=== PATIENT | female | born 1955 | race African-American/Black ===

== ENCOUNTER → 2016-10-17 | Outpatient (CLI) | payer MEDICAID ==
--- NOTE | 2016-10-17 10:49 | WOMENS IMAGING REPORT ---
EXAM DESCRIPTION: BILAT SCREENING MAMMO W/CAD COMPLETED DATE/TIME: 10/17/2016 9:45 am REASON FOR STUDY: Z12.31, ROUTINE SCREENING MAMMO Z12.31 ENCNTR SCREEN MAMMOGRAM FOR MALIGNANT NEOP LASM OF OJ COMPARISON: No previous, over 20 years ago TECHNIQUE: Standard craniocaudal and mediolateral oblique views of each breast recorded using digita l acquisition. LIMITATIONS: None. FINDINGS: No masses, calcifications or architectural distortion. No areas of suspicion. Read with the assistance of CAD. .[facility] - R2 Cenova Version 1.3 .[facility] - R2 Cenova Version 1.3 .[facility] - R2 Cenova Version 2.4 [place] [place]2 Cenova Version 2.4 .[facility] - R2 Rn Integrity Version 9.2 IMPRESSION: NORMAL MAMMOGRAM. BIRADS 1. BREAST DENSITY: a. The breasts are almost entirely fatty. BIRAD: 1 NEGATIVE RECOMMENDATION: ROUTINE SCREENING COMMENT: The patient has been notified of the results by letter per MQSA requirements. Additional no tification policies are in place for contacting patient with suspicious or incomplete findings. Quality ID #[id number]: The [employer] recommends an annual screening mammogram for women aged 40 years or over. This facility utilizes a reminder system to ensure that all patients receive reminder letters, and/or direct phone calls for appointments. This includes reminders for routine scr eening mammograms, diagnostic mammograms, or other Breast Imaging Interventions when appropriate. Th is patient will be placed in the appropriate reminder system. The [employer] (ACR) has developed recommendations for screening MRI of the breast s in certain patient populations, to be used in conjunction with mammography. Breast MRI surveillanc e may be appropriate for women with more than 20% lifetime risk of developing breast cancer as deter mined by genetic testing, significant family history of the disease, or history of mantle radiation f or Hodgkins Disease. ACR Practice Guidelines 2008. TECHNICAL DOCUMENTATION: FINDING NUMBER: (1) ASSESSMENT: (1) JOB ID: [id number] [employer]- All Rights Reserved
== END ==
LOC: WI 09:21
PROVIDERS: ATTEND Family Medicine
DX: Z12.31 Encounter for screening mammogram for malignant neoplasm of breast (principal)
CPT/HCPCS: 77067; G0202

== ENCOUNTER 2016-10-25 22:43 | Observation (INO) | payer MEDICAID ==
[2016-10-25] MEDS ORDERED: MORPHINE SULFATE IR 15 MG TABLET PO ONE (22:50)
[2016-10-25] MEDS ORDERED: ACETAMINOPHEN 325 MG TABLET PO ONE (22:50)
--- NOTE | 2016-10-25 23:28 | RADIOLOGY REPORT (SQ) ---
EXAM DESCRIPTION: SHOULDER RIGHT 2 OR MORE VIEWS COMPLETED DATE/TIME: 10/25/2016 11:14 pm REASON FOR STUDY: fall, pain COMPARISON: None. NUMBER OF VIEWS: Three views. TECHNIQUE: Internal rotation, external rotation, and Y view images acquired of the right shoulder. LIMITATIONS: Limited positioning. FINDINGS: MINERALIZATION: Normal. BONES: Impacted fracture of the humeral neck. JOINTS: No dislocation. VISUALIZED LUNGS AND RIBS: No pneumothorax. No rib fracture. SOFT TISSUES: No radiopaque foreign body. OTHER: No other significant finding. IMPRESSION: LIMITED POSITIONING. IMPACTED FRACTURE OF THE HUMERAL NECK. TECHNICAL DOCUMENTATION: JOB ID: [id number] [employer]- All Rights Reserved
[2016-10-25] MEDS ORDERED: HYDROCODONE/ACETAMINOPHEN 5-325 MG 6 TAB/DSPK PO PRN (23:33)
--- NOTE | 2016-10-25 23:34 | ER Document Report ---
ED General - General Chief Complaint: Shoulder Injury Stated Complaint: SHOULDER PAIN Time Seen by Provider: 10/25/16 22:47 Notes: Patient is a 60-year-old female with past medical history of a prior TIA, hypertension, who presents after having a mechanical fall onto her right shoulder just prior to arrival. Patient states she was standing on a couch trying to hang curtains when she lost her balance falling directly onto her right shoulder. She denies injuring any other portion of her body. Does describe a severe, constant, throbbing pain to the shoulder. Any attempt at movement worsens the pain. Nothing improves the pain. No history of similar injury in the past. She is right-hand dominant. She has not seen her primary care doctor regarding today's concerns. She does arrive by EMS. TRAVEL OUTSIDE OF THE [place] IN LAST 30 DAYS: No - Related Data Allergies/Adverse Reactions: No Known Allergies Allergy (Unverified 09/19/13 21:11) Past Medical History - General Information source: Patient - Social History Smoking Status: Never Smoker Chew tobacco use (# tins/day): No Frequency of alcohol use: None Drug Abuse: None Lives with: Family Family History: CAD - Uncle, grandfather with CAD by age 50. Mother of an NE at age 59., Hypertension - Past Medical History Cardiac Medical History: Reports: Hx Hypertension Neurological Medical History: Reports: Hx Cerebrovascular Accident Malignancy Medical History: Reports: Hx Ovarian Cancer Psychiatric Medical History: Reports: Hx Bipolar Disorder, Hx Depression Past Surgical History: Reports: Hx Cholecystectomy, Hx Hysterectomy, Hx Neurologic Surgery, Hx Tonsillectomy, Hx Tubal Ligation - Immunizations Hx Diphtheria, Pertussis, Tetanus Vaccination: Yes Review of Systems - Review of Systems Notes: Constitutional: Negative for fever. HENT: Negative for sore throat. Eyes: Negative for visual changes. Cardiovascular: Negative for chest pain. Respiratory: Negative for shortness of breath. Gastrointestinal: Negative for abdominal pain, vomiting or diarrhea. Genitourinary: Negative for dysuria. Musculoskeletal: Positive for left shoulder pain Skin: Negative for rash. Neurological: Negative for headaches, weakness or numbness. 10 point ROS negative except as marked above and in HPI. Physical Exam - Vital signs Vitals: Temp Pulse Resp BP Pulse Ox 98.3 F 77 17 174/91 H 98 10/25/16 22:50 10/25/16 22:50 10/25/16 22:50 10/25/16 22:50 10/25/16 22:50 Interpretation: Hypertensive Notes: PHYSICAL EXAMINATION: GENERAL: Appears mildly uncomfortable but no acute distress HEAD: Atraumatic, normocephalic. EYES: Pupils equal round and reactive to light, extraocular movements intact, sclera anicteric, conjunctiva are normal. ENT: nares patent, oropharynx clear without exudates. Moist mucous membranes. NECK: Normal range of motion, supple without lymphadenopathy LUNGS: Breath sounds clear to auscultation bilaterally and equal. No wheezes rales or rhonchi. HEART: Regular rate and rhythm, 3/6 systolic ejection murmur ABDOMEN: Soft, nontender, normoactive bowel sounds. No guarding, no rebound. No masses appreciated. EXTREMITIES: Refuses to perform range of motion with the right shoulder. No obvious deformity. Mild swelling to the anterior aspect of the soft tissue overlying humeral head. Exam otherwise unremarkable NEUROLOGICAL: No focal neurological deficits. Moves all extremities spontaneously and on command. PSYCH: Normal mood, normal affect. SKIN: Warm, Dry, normal turgor, no rashes or lesions noted. Course - Re-evaluation Re-evalutation: 10/25/16 23:33 Patient presents after mechanical fall directly onto her right shoulder just prior to arrival after standing on a couch and losing her balance. The only area of injury was her right shoulder. She denies any head or neck trauma. No focal neurologic deficits. Neurovascular intact. X-ray does demonstrate an impacted humeral neck fracture but is otherwise unremarkable without evidence of dislocation. Patient has been placed in a sling and will be asked to follow- up with orthopedic surgery. At this time will discharge with return precautions and follow-up recommendations. Verbal discharge instructions given a the bedside and opportunity for questions given. Medication warnings reviewed. Patient is in agreement with this plan and has verbalized understanding of return precautions and the need for primary care follow-up in the next 24-72 hours. 10/26/16 00:21 Shortly after I updated the pain of care with the patient she developed retrosternal chest pain without radiation with associated diaphoresis. No history of similar symptoms in the past. A stat EKG was obtained which did not show any ST elevations or depressions, unchanged from prior. She will be placed on a cardiac surgeon, aspirin will be administered. Will obtain a stat portable chest x-ray, and proceed with troponin testing. 10/26/16 01:45 Patient has remained chest pain-free now for over 1 hour. Troponin negative. Will obtain a second troponin 3 hours from initial. Chest x-ray is clear. 10/26/16 03:49 Patient did have a mild recurrence of her pain that has again resolved spontaneously without intervention. Repeat troponin is pending. If this is negative will plan for discharge home. - Vital Signs Vital signs: Temp Pulse Resp BP Pulse Ox 98.3 F 77 18 129/69 H 95 10/25/16 22:50 10/26/16 00:06 10/26/16 02:11 10/26/16 02:11 10/26/16 02:11 - Laboratory Result Diagrams: 10/26/16 00:35 Laboratory results interpreted by me: 10/26/16 00:35 Potassium 3.4 L Est GFR (Non-Af Amer) 56 L Glucose 123 H - Diagnostic Test Radiology reviewed: Image reviewed, Reports reviewed Radiology results interpreted by me: 10/26/16 01:45 Right shoulder film: Impacted femoral neck fracture Chest x-ray: No widened mediastinum or pneumothorax - EKG Interpretation by Me Additional EKG results interpreted by me: 10/26/16 01:46 Sinus rhythm. Rate 78. No ST elevations or depressions. Prolonged QTC at 511. Unchanged from prior EKG. Discharge - Discharge Clinical Impression: Fracture of neck of left humerus Qualifiers: Encounter type: initial encounter Fracture type: closed Qualified Code(s): S42.212A - Unspecified displaced fracture of surgical neck of left humerus, initial encounter for closed fracture Chest pain Qualifiers: Chest pain type: unspecified Qualified Code(s): R07.9 - Chest pain, unspecified Condition: Good Disposition: HOME, SELF-CARE Instructions: Sling as Treatment ([facility]) Additional Instructions: You have an impacted fracture of your left humeral neck. This is the bone of your upper extremity. This should heal well over the next several weeks without surgical intervention. Stay in the sling except when you are showering or sleeping. Please follow-up with orthopedic surgery in the next 1-2 weeks for routine follow-up. Return if you have worsening pain, weakness, numbness, or any other symptoms that are worrisome to you. For your pain: Take ibuprofen 600 mg and acetaminophen 1000 mg every 6 hours together as needed for pain. If this does not control your pain you may take 15 mg of oral morphine every 4 hours as needed. Please be very careful about using the oral morphine and only use this for severe pain. Prescriptions: Morphine Sulfate [Morphine Ir 15 mg Tablet] 15 mg PO Q4HP PRN #12 tablet PRN Reason:
[2016-10-26] MEDS ORDERED: ASPIRIN 81 MG TABLET, CHEWABLE PO ONE (00:19)
[2016-10-26] MEDS ORDERED: MAG HYDROX/AL HYDROX/SIMETH SUSP 30 ML UDCUP PO ONE (00:22)
[2016-10-26] MEDS ORDERED: METOCLOPRAMIDE HCL ORAL SOLN 10 MG/10 ML UDCUP PO ONE (00:22)
[2016-10-26] MEDS ORDERED: LIDOCAINE 2% VISCOUS SOLN 20 ML UDCUP PO ONE (00:22)
[2016-10-26] MEDS: NITROGLYCERIN 0.4 MG/TAB 25 TAB/BOTTLE SL PRN ×2 (00:44→00:51)
[2016-10-26 01:14] LABS: ANION GAP 14 (5-19); BLOOD UREA NITROGEN 15 mg/dL (7-20); CALCIUM 9.6 mg/dL (8.4-10.2); CARBON DIOXIDE 27 mmol/L (22-30); CHLORIDE 103 mmol/L (98-107); CREATININE RESULT 1.02 mg/dL (0.52-1.25); GLUCOSE 123 mg/dL (75-110); POTASSIUM 3.4 mmol/L (3.6-5.0); SODIUM 143.8 mmol/L (137-145)
--- NOTE | 2016-10-26 02:13 | RADIOLOGY REPORT (SQ) ---
EXAM DESCRIPTION: CHEST SINGLE VIEW COMPLETED DATE/TIME: 10/26/2016 1:16 am REASON FOR STUDY: chest pain COMPARISON: Chest x-ray 12/06/2015. EXAM PARAMETERS: NUMBER OF VIEWS: One view. TECHNIQUE: Single frontal radiographic view of the chest acquired. RADIATION DOSE: NA LIMITATIONS: Patient positioning FINDINGS: LUNGS AND PLEURA: The patient's chin is partially obscuring the lung apices. The patient is in a kyphotic position. There is no consolidation, sizable pleural effusion or obvious pneumothor ax. MEDIASTINUM AND HILAR STRUCTURES: No masses. Contour normal. HEART AND VASCULAR STRUCTURES: Heart normal in size. No overt vascular congestion. HARDWARE: None in the chest. IMPRESSION: No acute radiographic finding in the chest. TECHNICAL DOCUMENTATION: JOB ID: [id number]
[2016-10-26] MEDS ORDERED: METOPROLOL SUCCINATE 50 MG TAB.SR.24H PO ONE ×2 (06:34→15:00)
[2016-10-26] MEDS ORDERED: VERAPAMIL HCL 180 MG TABLET.SA PO ONE ×3 (06:36→15:00)
[2016-10-26] MEDS ORDERED: HYDROCHLOROTHIAZIDE 12.5 MG CAPSULE PO ONE (07:21)
[2016-10-26] MEDS ORDERED: LISINOPRIL 10 MG TABLET PO ONE ×2 (07:21→15:00)
[2016-10-26] MEDS ORDERED: ONDANSETRON 4 MG TAB.RAPDIS PO PRN (07:37)
[2016-10-26] MEDS ORDERED: MAGNESIUM HYDROXIDE SUSP 30 ML UDCUP PO PRN (07:37)
[2016-10-26] MEDS ORDERED: ACETAMINOPHEN 325 MG TABLET PO PRN (07:37)
[2016-10-26] MEDS ORDERED: POTASSIUM CHLORIDE 10 MEQ TABLET.SA PO ONE (08:35)
[2016-10-26] MEDS ORDERED: HYDRALAZINE HCL INJ/PF 20 MG/1 ML SDV IV ONE (08:49)
[2016-10-26] MEDS ORDERED: HYDRALAZINE HCL INJ/PF 20 MG/1 ML SDV IV PRN (08:49)
[2016-10-26] MEDS ORDERED: LEVETIRACETAM 500 MG TABLET PO SCH (10:00)
[2016-10-26] MEDS ORDERED: VERAPAMIL HCL 240 MG TABLET.SA PO SCH (10:00)
[2016-10-26] MEDS ORDERED: LISINOPRIL 10 MG TABLET PO SCH (10:00)
--- NOTE | 2016-10-26 10:03 | EKG REPORT ---
SEVERITY:- ABNORMAL ECG - SINUS RHYTHM LEFT ATRIAL ABNORMALITY LEFT VENTRICULAR HYPERTROPHY ABNORMAL T, CONSIDER ISCHEMIA, LATERAL LEADS PROLONGED QT INTERVAL : Confirmed by: Cesar Urrutia MD 26-Oct-2016 10:02:33
--- NOTE | 2016-10-26 10:29 | HISTORY AND PHYSICAL E ---
History and Physical NAME: SALVADOR CAMACHO : 1955 AGE: 60Y ADMITTED: 10/26/2016 ROOM: 406 CODE STATUS: DO NOT RESUSCITATE/DO NOT INTUBATE. PRIMARY CARE PROVIDER: Dr. Lancaster. CHIEF COMPLAINT: Fall and chest pain. HISTORY OF PRESENT ILLNESS: The patient is a 60-year-old female with a past medical history of IHSS and previous hemorrhagic stroke. The patient presented to the emergency department via EMS after sustaining a fall. The patient sustained a mechanical fall to the right shoulder just prior to arrival. The patient stated she was standing on her couch trying to hang curtains when she lost her balance and fell directly onto her right shoulder. She denied any injury of any other portion of her body and does describe a severe constant throbbing pain of the shoulder. The patient stated any attempt to move the shoulder made the pain much worse. Nothing improved the pain. The patient had not had any similar injuries in the past. She is right-hand dominant. The patient is known to the hospitalist service due to severe hypertension which is quite difficult to control. The patient was found to have hypertrophic obstructive cardiomyopathy during previous admission and nitrate agents, of course, have been avoided for this. The patient's blood pressure, according to the patient, has been relatively well controlled by her primary care provider with Toprol XL, verapamil and lisinopril. The patient has denied any other symptoms of nausea, vomiting, diarrhea, shortness of breath or dizziness. The patient had an abrupt onset of chest pain and diaphoresis which was witnessed in the emergency department. The patient denied any radiation but stated it was a grabbing type pain. The patient's troponin was 0.030 and the patient's EKG that was done did not show any change in comparison to previous EKGs. The patient has been afebrile. The patient's blood pressure has been significantly elevated. She has been referred to the hospitalist for observation and management. PAST MEDICAL HISTORY: 1. Hypertrophic obstructive cardiomyopathy. 2. Malignant hypertension which has resulted in a hemorrhagic event in the past. 3. Depression. 4. Seizure disorder. HOME MEDICATIONS: 1. Verapamil ER 240 mg p.o. daily. 2. Toprol XL 100 mg p.o. q.12 h. 3. Lisinopril 20 mg p.o. b.i.d. 4. Keppra 500 mg p.o. b.i.d. ALLERGIES: NITRATES BUT NO KNOWN TRUE DRUG ALLERGIES. PAST SURGICAL HISTORY: 1. Cholecystectomy. 2. Hysterectomy. 3. Tonsillectomy. 4. Tubal ligation. 5. Cerebral aneurysmal repair. SOCIAL HISTORY: The patient currently resides at home alone. She denies any tobacco use. No alcohol or illicit drug use. The patient's surrogate decision maker is her [id number], Yasmeen, who may be reached at [phone]. FAMILY MEDICAL HISTORY: Positive for coronary artery disease in her uncle and grandfather. The patient's mother of an CO at age 59. Also strong family history of hypertension. The patient has children who are healthy. REVIEW OF SYSTEMS: CONSTITUTIONAL: The patient denies any fevers, chills, dizziness, weakness, loss of appetite. INTEGUMENTARY: Denies any rashes, bruising or itching. The patient does admit to an episode of diaphoresis. HEENT: Denies any vision loss or hearing loss, no nasal drainage, sore throat, no headaches. CARDIOVASCULAR: Denies any edema or heart palpitations. Positive for chest pain. RESPIRATORY: Denies any cough, sputum production or hemoptysis. GASTROINTESTINAL: Denies any nausea, vomiting, abdominal pain, diarrhea, bloating, hematemesis, constipation, melena, hematochezia. GENITOURINARY: Denies any hematuria, pyuria or dysuria. MUSCULOSKELETAL: Denies any chronic joint pains but admits to acute right shoulder pain. NEUROLOGIC: No seizures, tremors or loss of consciousness. HEMATOLOGICAL: Denies any mag bleeding or easy bruising. ENDOCRINE: Denies any recent weight changes. PSYCHIATRIC: Denies suicidal or homicidal ideation. The rest of the review of the other organ systems is negative. PHYSICAL EXAMINATION: GENERAL: On examination, the patient is a well-developed, well-nourished 60-year-old female who is awake, alert and oriented to person, place, time and situation. She is verbal, conversational and ambulatory and does not appear to be in any acute distress. VITAL SIGNS: Temperature 98.3, pulse 78, respirations 17, blood pressure 193/99, oxygen saturation is 95% on room air. SKIN: Warm and dry. No rash, not diaphoretic. HEENT: Pupils are equal, round, and reactive to light and accommodation. Conjunctivae is pink. Sclerae are not icteric. There are no mouth lesions. Tongue is midline. NECK: Supple. No JVD. No palpable lymphadenopathy or thyromegaly. CARDIOVASCULAR: Heart is regular. There is no murmur or rub. CHEST: Clear, symmetrical and unlabored. ABDOMEN: Soft, nontender, nondistended. Bowel sounds are present. No palpable organomegaly. BACK: No CVA tenderness or sacral edema. EXTREMITIES: No clubbing, cyanosis, edema or peripheral signs of embolization. +2 pedal pulses noted bilaterally. PSYCHIATRIC: Appropriate affect. Pleasant mood. NEUROLOGIC: Cranial nerves II-XII are grossly intact. DIAGNOSTICS: Labs are as follows: Chemistry obtained on 10/26/2016: Sodium 143, potassium 3.4, chloride 103, carbon dioxide 27, BUN 15, creatinine 1.02, glucose 123, calcium 9.6, troponin is 0.043. Chest x-ray obtained on 10/26/2016 reveals no acute radiographic finding of the chest. Shoulder x-ray obtained on 10/25/2016 reveals impacted fracture of the femoral neck. EKG obtained on 10/26/2016 reveals sinus rhythm with left atrial abnormality, left ventricular hypertrophy. IMPRESSION AND PLAN: 1. Chest pain. Will admit the patient to continuous telemetry unit, obtain serial cardiac enzymes. Most likely this is due to hypertension, however, will follow. 2. Hypertensive emergency. Will avoid nitrates given the patient's HOCM, however, will resume home medications as soon as possible and follow this closely. 3. Hypokalemia. Will supplement potassium and follow. 4. Seizure disorder. Will resume home Keppra. 5. Humeral fracture. Will consult orthopedics and add pain medications. CODE STATUS: The patient is and has been for quite some time a DO NOT RESUSCITATE. DISPOSITION: The patient is a DNR/DNI. Pending patient's symptomatology and diagnostic findings, will evaluate in the a.m. Will observe the patient in the continuous telemetry, as the patient's expected length of stay should not surpass 2 midnights. Time spent on this admission including assessment, plan, physical examination, patient education, and extensive review of previous records is 40 minutes. DICTATING PHYSICIAN: MADELYN GAMBNIO NP [id number] PHY#: [id number] ID: [id number] JOB#: [id number] ACCT: [id number] cc:MADELYN GAMBINO FURRIER APPRENTICE >
[2016-10-26] MEDS: DOCUSATE SODIUM 100 MG CAPSULE PO SCH ×2 (10:34→17:51)
--- NOTE | 2016-10-26 13:00 | PDOC CONSULTATION ---
Consultation Consult Date: 10/26/16 Consult reason:: Right proximal humerus fracture History of Present Illness Admission Date/PCP: 10/26/16 07:37 JEMMA HAYWOOD History of Present Illness: SLAVADOR CAMACHO is a 60 year old female sitting on a couch when the soft cushions led to her slip and fall. She landed onto her right shoulder and had immediate onset right shoulder pain. X-rays in the emergency room demonstrated a right proximal humerus fracture. Orthopedics was consulted for fracture management. Past Medical History Cardiac Medical History: Reports: Hypertension Malignancy Medical History: Reports: Ovarian Cancer Psychiatric Medical History: Reports: Bipolar Disorder Denies: Depression Past Surgical History Past Surgical History: Reports: Cholecystectomy, Hysterectomy, Tonsillectomy, Tubal Ligation Social History Information Source: Patient, [facility] Records Lives with: Alone Smoking Status: Former Smoker Frequency of Alcohol Use: None Hx Recreational Drug Use: No Hx Prescription Drug Abuse: No Family History Family History: CAD - Uncle, grandfather with CAD by age 50. Mother of an [place] at age 59., Hypertension Parental Family History Reviewed: No Children Family History Reviewed: No Sibling(s) Family History Reviewed.: No Medication/Allergy Home Medications: Acetaminophen/Diphenhydramine [Tylenol Pm Ex-Strength Caplet] 1 tab PO QHS 10/26 Ibuprofen [Advil] 200 mg PO DAILYP PRN 10/26/16 Lisinopril/Hydrochlorothiazide [Zestoretic 20-12.5 mg Tablet] 2 tab PO DAILY Metoprolol Succinate [Toprol XL 100 mg Tablet] 100 mg PO DAILY 10/26/16 Trazodone HCl [Desyrel 50 mg Tablet] 100 mg PO QHS 10/26/16 Verapamil HCl [Verapamil Sr] 360 mg PO DAILY 10/26/16 Allergies/Adverse Reactions: Nitrate Analogues Adverse Reaction (Verified 10/26/16 08:54) Hypertrophic Cardiomyopathy Review of Systems All systems: as per [facility] Physical Exam Vital Signs: Temp Pulse Resp BP Pulse Ox 37.4 C 63 16 126/103 H 94 10/26/16 12:02 10/26/16 12:02 10/26/16 12:02 10/26/16 12:02 10/26/16 12:02 Intake & Output 10/25/16 10/26/16 10/27/16 06:59 06:59 06:59 Intake Total 360 Balance 360 Weight 93.071 kg Physical Exam: Patient is an overweight if not obese middle-aged black female lying in the bed with her right upper extremity immobilized in this shoulder sling. General appearance: PRESENT: mild distress, obese Head exam: PRESENT: normocephalic Eye exam: PRESENT: EOMI Respiratory exam: PRESENT: unlabored Cardiovascular exam: PRESENT: RRR Pulses: PRESENT: normal radial pulses Vascular exam: PRESENT: normal capillary refill GI/Abdominal exam: PRESENT: soft Rectal exam: PRESENT: deferred Extremities exam: PRESENT: other - Upper extremity immobilized in a shoulder sling. There is ecchymosis about the upper arm. There is minimal edema about the fingers. Distal neurovascular examination is intact. There is no skin abnormalities. Neurological exam: PRESENT: alert, awake, oriented to person, oriented to place , oriented to time, oriented to situation, CN II-XII grossly intact. ABSENT: motor sensory deficit Psychiatric exam: PRESENT: appropriate affect, normal mood. ABSENT: homicidal ideation, suicidal ideation Skin exam: PRESENT: dry, intact, warm. ABSENT: cyanosis, rash Results Laboratory Results: 10/26/16 09:23 Troponin I 0.038 Impressions: Shoulder X-Ray 10/25/16 22:47 IMPRESSION: LIMITED POSITIONING. IMPACTED FRACTURE OF THE HUMERAL NECK. Chest X-Ray 10/26/16 00:19 IMPRESSION: No acute radiographic finding in the chest. Status: Imported from PACS Assessment & Plan - Diagnosis (1) Fracture of humerus, proximal, right, closed Is this a current diagnosis for this admission?: YesPlan: 60-year-old black female who lives alone and is right-hand dominant who presents with a right proximal humerus fracture. Discussed operative and nonoperative care. The patient is interested in returning to some activity level as soon as possible. I think with an open reduction internal fixation motion of the shoulder will return faster and hence we have opted to proceed with an open reduction internal fixation of right proximal humerus fracture under choice anesthesia on Thursday pending medical clearance. - Time Time Spent: 50 to 70 Minutes Anticipated discharge: Home with Homehealth Within: Other
[2016-10-26] MEDS: OXYCODONE HCL IR 5 MG TABLET PO PRN ×2 (13:46→18:13)
[2016-10-26] MEDS ORDERED: HYDROCHLOROTHIAZIDE 25 MG TABLET PO ONE (15:00)
[2016-10-26] MEDS: LANSOPRAZOLE 30 MG TAB.RAP.DR PO SCH (17:52)
[2016-10-26] MEDS ORDERED: METOPROLOL SUCCINATE 50 MG TAB.SR.24H PO SCH (22:00)
[2016-10-26] MEDS ORDERED: TRAZODONE HCL 50 MG TABLET PO SCH (22:00)
[2016-10-26] MEDS: TRAZODONE HCL 50 MG TABLET PO SCH (22:51)
[2016-10-27] MEDS: OXYCODONE HCL IR 5 MG TABLET PO PRN (05:55)
[2016-10-27] MEDS: LANSOPRAZOLE 30 MG TAB.RAP.DR PO SCH ×2 (05:55→18:02)
[2016-10-27 06:05] LABS: CHOLESTEROL 175.12 mg/dL (0-200); Direct HDL 41 mg/dL (>40); TRIGLYCERIDES 182 mg/dL (<150)
[2016-10-27 06:16] LABS: DIRECT LDL 97 mg/dL (<100)
[2016-10-27 06:22] LABS: VLDL CHOLESTEROL 36.4 mg/dL (10-31)
--- NOTE | 2016-10-27 07:26 | EKG REPORT ---
SEVERITY:- ABNORMAL ECG - SINUS RHYTHM GARTH, CONSIDER BIATRIAL ABNORMALITIES PROLONGED QT INTERVAL : Confirmed by: Jose Manuel Conley 27-Oct-2016 07:25:46
[2016-10-27] MEDS ORDERED: LANSOPRAZOLE 30 MG TAB.RAP.DR PO ONE (07:45)
[2016-10-27] MEDS ORDERED: ETOMIDATE INJ/PF 20 MG/10 ML SDV IV ONE (09:40)
[2016-10-27] MEDS ORDERED: LIDOCAINE 2% INJ-PF (20 MG/ML) 10 ML AMPUL ONE (09:40)
[2016-10-27] MEDS ORDERED: ONDANSETRON HCL INJ/PF 4 MG/2 ML SDV ONE (09:40)
[2016-10-27] MEDS ORDERED: DEXAMETHASONE SOD PHOSPHATE INJ 4 MG/1 ML VIAL ONE (09:40)
[2016-10-27] MEDS ORDERED: VERAPAMIL HCL 180 MG TABLET.SA PO SCH (10:00)
[2016-10-27] MEDS ORDERED: METOPROLOL SUCCINATE 50 MG TAB.SR.24H PO SCH (10:00)
[2016-10-27] MEDS: METOPROLOL SUCCINATE 50 MG TAB.SR.24H PO SCH (10:05)
--- NOTE | 2016-10-27 12:01 | PROGRESS NOTE E ---
Progress Note NAME: SALVADOR CAMACHO : 1955 AGE: 60Y DATE: 10/27/2016 ROOM: 406 SUBJECTIVE: The patient is lying in bed. She states she feels better today. No further episodes of chest pain. She denies any nausea, vomiting, diarrhea, shortness of breath, dizziness, chest pain. No fevers or chills. Patient has been afebrile, blood pressure has been in a good range, and the patient does not voice any other concerns at this time. The patient is to go to the OR today with Dr. Blancas for humeral fracture repair. BRIEF HISTORY: The patient is a 60-year-old female that is known to the hospitalist service due to previous admission for hypertensive emergency. 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 The patient was going to be discharged from the ER; however, she developed chest pain and was quite diaphoretic and had a very high blood pressure, so she was admitted. Dr. Blancas saw the patient yesterday and felt that she needed to go to the OR. Blood pressures are much improved. REVIEW OF SYSTEMS: The rest of the review of systems is negative. MEDICATIONS: Medications have been reviewed. OBJECTIVE: GENERAL: The patient is a 60-year-old -[place] female who is awake, alert, and oriented to person, place, time, and situation. She is verbal, conversational, ambulatory, does not appear to be in any acute distress. VITAL SIGNS: As follows: Temperature is 98.2, pulse 86, respirations 12, blood pressure is 130/70, oxygen saturation is 92% on room air. SKIN: Warm and dry. No rash, not diaphoretic. HEENT: Pupils equal, round and reactive to light and accommodation. Conjunctivae pink. No JVP. CARDIOVASCULAR: Heart is regular. No murmur or rub. CHEST: Clear, symmetrical, unlabored. ABDOMEN: Soft, nontender, nondistended. BACK: No CVA tenderness or sacral edema. EXTREMITIES: No clubbing, cyanosis, edema. PSYCHIATRIC: Appropriate affect, pleasant mood. DIAGNOSTICS: Lab values are as follows. Triglycerides are 182, cholesterol 175, LDL 97, VLDL 36, HDL is 41. EKG obtained on 10/27/2016 reveals sinus rhythm. IMPRESSION AND PLAN: 1. CHEST PAIN. The patient had no further replication of symptoms, no EKG changes. This was felt to be due to the patient's uncontrolled hypertension. Overall this is much improved. 2. HYPERTENSIVE EMERGENCY. Avoid nitrates given the patient has underlying HOCUM. However, after resuming her home blood pressure medications, this is returned to baseline and much improved. 3. HYPOKALEMIA. This was supplemented. 4. SEIZURE DISORDER. The patient has been taken off of these medications by her neurologist as she has been episode free for a number of years. 5. HUMERAL FRACTURE. Do appreciate Orthopedic input. The patient is to go to the OR today. DISPOSITION: THE PATIENT IS A DO NOT RESUSCITATE/DO NOT INTUBATE. Pending the patient's symptomatology and diagnostic findings, will re-evaluate in the a.m. for discharge. Time spent on this followup, including assessment/plan, physical examination, patient education, and family meeting, is 20 minutes. DICTATING PHYSICIAN: MADELYN GAMBINO NP [id number] PHY#: [id number] ID: [id number] JOB#: [id number] ACCT: [id number] cc: >
[2016-10-27 13:06] LABS: ANION GAP 10 (5-19); BLOOD UREA NITROGEN 19 mg/dL (7-20); CARBON DIOXIDE 28 mmol/L (22-30); CHLORIDE 101 mmol/L (98-107); CREATININE RESULT 1.09 mg/dL (0.52-1.25); GLUCOSE 93 mg/dL (75-110); POTASSIUM 3.9 mmol/L (3.6-5.0); SODIUM 139.4 mmol/L (137-145)
[2016-10-27] MEDS ORDERED: BUPIVACAINE HCL 0.5%-EPI 1:200000 INJ/PF 30 ML VIAL ONE (13:17)
[2016-10-27] MEDS ORDERED: FENTANYL CITRATE INJ/PF 250 MCG/5 ML AMPULE ONE (13:27)
[2016-10-27] MEDS ORDERED: MIDAZOLAM 2 MG/2 ML INJ ONE (13:27)
[2016-10-27] MEDS ORDERED: METOPROLOL TARTRATE PF/INJ 5 MG/5 ML SDV IV ONE (13:27)
[2016-10-27] MEDS ORDERED: PROPOFOL INJ 200 MG/20 ML VIAL IV ONE (13:27)
[2016-10-27] MEDS ORDERED: HYDROMORPHONE HCL INJ/PF 2 MG/ML AMPULE ONE (13:33)
[2016-10-27] MEDS ORDERED: CEFAZOLIN INJ 1 GM VIAL ONE (14:09)
[2016-10-27] MEDS ORDERED: TRANEXAMIC ACID INJ/PF 1,000 MG/10 ML SDV IV ONE (14:10)
[2016-10-27] MEDS ORDERED: DIPHENHYDRAMINE HCL 50 MG/ML VIAL IV PRN (14:46)
[2016-10-27] MEDS ORDERED: FENTANYL CITRATE INJ/PF 100 MCG/2 ML AMPUL IV PRN ×3 (14:46)
[2016-10-27] MEDS ORDERED: ONDANSETRON HCL INJ/PF 4 MG/2 ML SDV IV PRN ×2 (14:46→18:30)
[2016-10-27] MEDS ORDERED: LABETALOL HCL INJ 20 MG/4 ML DISP.SYRIN IV PRN (14:46)
[2016-10-27] MEDS ORDERED: MEPERIDINE HCL/PF INJ 25 MG/1 ML DISP.SYRIN IV PRN (14:46)
[2016-10-27] MEDS ORDERED: PROMETHAZINE HCL INJ 25 MG/1 ML VIAL IV PRN (14:46)
[2016-10-27] MEDS ORDERED: MORPHINE SULFATE 10 MG/ML INJ IV PRN (14:46)
[2016-10-27] MEDS ORDERED: MAGNESIUM HYDROXIDE SUSP 30 ML UDCUP PO PRN (14:54)
[2016-10-27] MEDS: DOCUSATE SODIUM 100 MG CAPSULE PO SCH ×2 (15:09→18:03)
--- NOTE | 2016-10-27 15:33 | Operative Report ---
Operative Report DATE OF SURGERY: 10/27/16 PREOPERATIVE DIAGNOSIS: Right proximal humerus fracture OPERATION: Open reduction internal fixation right proximal humerus fracture SURGEON: JW MARX ANESTHESIA: GA ESTIMATED BLOOD LOSS: 100 PROCEDURE: Patient in the beachchair position on the operating table the right upper extremity and forequarter prepped and draped in sterile fashion. A standard deltopectoral approach to the proximal humerus is performed. The underlying humerus fracture is identified. A Preeti 5 hole titanium proximal humeral plate is then applied across the fracture securing the proximal end first and then reducing this by bringing the distal end to the diaphysis. The fracture reduction and hardware placement checked in 2 planes with fluoroscopy and felt to be adequate. This point wound is irrigated and closed in layers with interrupted Vicryl followed by aida. A sterile dressing was applied and the patient's return to the PACU in satisfactory condition.
--- NOTE | 2016-10-27 17:19 | RADIOLOGY REPORT (SQ) ---
EXAM DESCRIPTION: NO CHG FLUORO; SHOULDER RIGHT 2 OR MORE VIEWS COMPLETED DATE/TIME: 10/27/2016 3:42 pm REASON FOR STUDY: ORIF RT SHOULDER ASSISTED WITH FLUORO IN OR COMPARISON: 10/25/2016 FLUOROSCOPY TIME: 0.6 MINUTES. TECHNIQUE: Intra-operative images acquired during surgical procedure to evaluate progress. NUMBER OF IMAGES: 2 LIMITATIONS: None. FINDINGS: 2 fluoroscopic images demonstrates ORIF humeral neck fracture without gross complication. IMPRESSION: IMAGE(S) OBTAINED DURING PROCEDURE. COMMENT: Quality ID [id number]: Final reports for procedures using fluoroscopy that document radiation exp osure indices, or exposure time and number of fluorographic images (if radiation exposure indices are not available) Please consult full operative report of the attending physician for description of the procedure. TECHNICAL DOCUMENTATION: JOB ID: [id number] [employer]- All Rights Reserved
--- NOTE | 2016-10-27 17:19 | RADIOLOGY REPORT (SQ) ---
EXAM DESCRIPTION: NO CHG FLUORO; SHOULDER RIGHT 2 OR MORE VIEWS COMPLETED DATE/TIME: 10/27/2016 3:42 pm REASON FOR STUDY: ORIF RT SHOULDER ASSISTED WITH FLUORO IN OR COMPARISON: 10/25/2016 FLUOROSCOPY TIME: 0.6 MINUTES. TECHNIQUE: Intra-operative images acquired during surgical procedure to evaluate progress. NUMBER OF IMAGES: 2 LIMITATIONS: None. FINDINGS: 2 fluoroscopic images demonstrates ORIF humeral neck fracture without gross complication. IMPRESSION: IMAGE(S) OBTAINED DURING PROCEDURE. COMMENT: Quality ID [id number]: Final reports for procedures using fluoroscopy that document radiation exp osure indices, or exposure time and number of fluorographic images (if radiation exposure indices are not available) Please consult full operative report of the attending physician for description of the procedure. TECHNICAL DOCUMENTATION: JOB ID: [id number] [employer]- All Rights Reserved
[2016-10-27] MEDS ORDERED: RINGERS SOLUTION,LACTATED 1,000 ML IV PRN (18:00)
[2016-10-27] MEDS ORDERED: ONDANSETRON 4 MG TAB.RAPDIS SL PRN (18:00)
[2016-10-27] MEDS: HYDROCHLOROTHIAZIDE 25 MG TABLET PO SCH (18:03)
[2016-10-27] MEDS: LISINOPRIL 10 MG TABLET PO SCH (18:03)
[2016-10-27] MEDS: VERAPAMIL HCL 180 MG TABLET.SA PO SCH (18:03)
[2016-10-27] MEDS ORDERED: OXYCODONE HCL IR 5 MG TABLET PO PRN (18:30)
[2016-10-27] MEDS: TRAZODONE HCL 50 MG TABLET PO SCH (23:14)
[2016-10-28 05:14] LABS: ABSOLUTE LYMPHOCYTES (AUTO) 0.9 10^3/uL (0.5-4.7); ABSOLUTE MONOCYTES (AUTO) 0.7 10^3/uL (0.1-1.4); ABSOLUTE NEUT (AUTO) 8.3 10^3/uL (1.7-8.2); BASOPHILS % (AUTO) 0.2 % (0-2); HEMATOCRIT 34.7 % (36.0-47.0); HEMOGLOBIN 11.2 g/dL (12.0-15.5); HGB HCT DIFFERENCE -1.1; MEAN CORPUSCULAR HEMOGLOBIN 28.6 pg (27.0-33.4); MEAN CORPUSCULAR HGB CONC 32.2 g/dL (32.0-36.0); MEAN CORPUSCULAR VOLUME 89 fl (80-97); RED BLOOD COUNT 3.91 10^6/uL (3.72-5.28); RED CELL DISTRIBUTION WIDTH 14.5 % (11.5-14.0); SEGMENTED NEUTROPHILS % (AUTO) 83.8 % (42-78); WHITE BLOOD COUNT 9.9 10^3/uL (4.0-10.5)
[2016-10-28 05:27] LABS: ANION GAP 12 (5-19); BLOOD UREA NITROGEN 19 mg/dL (7-20); CALCIUM 8.9 mg/dL (8.4-10.2); CARBON DIOXIDE 28 mmol/L (22-30); CHLORIDE 100 mmol/L (98-107); CREATININE RESULT 0.92 mg/dL (0.52-1.25); GLUCOSE 120 mg/dL (75-110); POTASSIUM 4.4 mmol/L (3.6-5.0); SODIUM 139.9 mmol/L (137-145)
[2016-10-28] MEDS: LANSOPRAZOLE 30 MG TAB.RAP.DR PO SCH ×2 (05:41→17:14)
--- NOTE | 2016-10-28 07:14 | PDOC PROGRESS REPORT ---
Subjective Progress Note for:: 10/28/16 Subjective:: Patient complains of discomfort Physical Exam Vital Signs: Temp Pulse Resp BP Pulse Ox 36.5 C 56 L 20 122/66 99 10/28/16 03:53 10/28/16 03:53 10/28/16 03:53 10/28/16 03:53 10/28/16 03:53 Intake & Output 10/27/16 10/28/16 10/29/16 06:59 06:59 06:59 Intake Total 775 3575 Output Total 475 Balance 775 3100 Weight 93.5 kg General appearance: PRESENT: mild distress Head exam: PRESENT: normocephalic Eye exam: PRESENT: EOMI Respiratory exam: PRESENT: unlabored Cardiovascular exam: PRESENT: RRR Pulses: PRESENT: normal radial pulses GI/Abdominal exam: PRESENT: soft Rectal exam: PRESENT: deferred Extremities exam: PRESENT: other - Extremity dressing clean dry and intact. Distal neurovascular examination is intact. Neurological exam: PRESENT: alert, awake, oriented to person, oriented to place , oriented to time, oriented to situation. ABSENT: motor sensory deficit Psychiatric exam: PRESENT: appropriate affect, normal mood. ABSENT: homicidal ideation, suicidal ideation Skin exam: PRESENT: dry, intact, warm. ABSENT: cyanosis, rash Results Laboratory Results: 10/28/16 04:18 10/28/16 04:18 10/27/16 10/28/16 10/28/16 05:05 04:18 04:18 WBC 9.9 RBC 3.91 Hgb 11.2 L Hct 34.7 L MCV 89 MCH 28.6 MCHC 32.2 RDW 14.5 H Plt Count 346 Seg Neutrophils % 83.8 H Lymphocytes % 9.0 L Monocytes % 7.0 Eosinophils % 0.0 Basophils % 0.2 Absolute Neutrophils 8.3 H Absolute Lymphocytes 0.9 Absolute Monocytes 0.7 Absolute Eosinophils 0.0 Absolute Basophils 0.0 Sodium 139.4 139.9 Potassium 3.9 4.4 Chloride 101 100 Carbon Dioxide 28 28 Anion Gap 10 12 BUN 19 19 Creatinine 1.09 0.92 Est GFR ( Amer) > 60 > 60 Est GFR (Non-Af Amer) 52 L > 60 Glucose 93 120 H Calcium 9.0 8.9 10/26/16 09:23 Troponin I 0.038 Impressions: Chest X-Ray 10/26/16 00:19 IMPRESSION: No acute radiographic finding in the chest. Fluoroscopy 10/27/16 00:00 IMPRESSION: IMAGE(S) OBTAINED DURING PROCEDURE. Shoulder X-Ray 10/27/16 00:00 IMPRESSION: IMAGE(S) OBTAINED DURING PROCEDURE. Assessment & Plan - Diagnosis (1) Fracture of humerus, proximal, right, closed Is this a current diagnosis for this admission?: YesPlan: The 10-year-old black female postop day 1 from open reduction internal fixation of her right humerus fracture. At this point she does not feel that she has mobility return home. We will institute physical therapy today and observe for an additional 24 hours. - Time Time Spent with patient: 15-24 minutes Anticipated discharge: Home with Homehealth Within: within 24 hours
[2016-10-28] MEDS: DOCUSATE SODIUM 100 MG CAPSULE PO SCH ×2 (10:23→17:14)
[2016-10-28] MEDS: LISINOPRIL 10 MG TABLET PO SCH (10:23)
[2016-10-28] MEDS: METOPROLOL SUCCINATE 50 MG TAB.SR.24H PO SCH (10:23)
[2016-10-28] MEDS: HYDROCHLOROTHIAZIDE 25 MG TABLET PO SCH (10:23)
[2016-10-28] MEDS ORDERED: KETOROLAC TROMETHAMINE INJ/PF 30 MG/1 ML SDV IV PRN (11:18)
[2016-10-28] MEDS ORDERED: POLYETHYLENE GLYCOL 3350 POWDER 17 GM/1 PACKET PO PRN (11:18)
[2016-10-28] MEDS: VERAPAMIL HCL 180 MG TABLET.SA PO SCH (14:08)
--- NOTE | 2016-10-28 16:34 | PDOC PROGRESS REPORT ---
Subjective Progress Note for:: 10/28/16 Subjective:: She is resting comfortably in bed at the present time. She continues to complain of pain in the right shoulder. Patient seen on morning rounds. She denies any chest pain, shortness of breath or dyspnea. She denies any nausea, abdominal pain or diarrhea. Rest of the review of systems are negative Physical Exam Vital Signs: Temp Pulse Resp BP Pulse Ox 98.2 F 79 18 164/89 H 97 10/28/16 11:47 10/28/16 11:47 10/28/16 11:47 10/28/16 11:47 10/28/16 11:47 Intake & Output 10/27/16 10/28/16 10/29/16 06:59 06:59 06:59 Intake Total 775 3575 320 Output Total 475 Balance 775 3100 320 Weight 93.5 kg General appearance: PRESENT: no acute distress, obese, well-developed, well- nourished Head exam: PRESENT: atraumatic, normocephalic Eye exam: PRESENT: conjunctiva pink, EOMI, PERRLA. ABSENT: scleral icterus Ear exam: PRESENT: normal external ear exam Mouth exam: PRESENT: moist, tongue midline Respiratory exam: PRESENT: clear to auscultation orquidea. ABSENT: rales, rhonchi, wheezes Cardiovascular exam: PRESENT: RRR. ABSENT: diastolic murmur, rubs, systolic murmur Pulses: PRESENT: normal dorsalis pedis pul Vascular exam: PRESENT: normal capillary refill GI/Abdominal exam: PRESENT: normal bowel sounds, soft. ABSENT: distended, guarding, mass, organolmegaly, rebound, tenderness Rectal exam: PRESENT: deferred Extremities exam: PRESENT: full ROM. ABSENT: calf tenderness, clubbing, pedal edema Musculoskeletal exam: PRESENT: ambulatory Neurological exam: PRESENT: alert, awake, oriented to person, oriented to place , oriented to time, oriented to situation, CN II-XII grossly intact. ABSENT: motor sensory deficit Psychiatric exam: PRESENT: appropriate affect, normal mood. ABSENT: homicidal ideation, suicidal ideation Skin exam: PRESENT: dry, intact, warm. ABSENT: cyanosis, rash Results Laboratory Results: 10/28/16 04:18 10/28/16 04:18 10/28/16 10/28/16 04:18 04:18 WBC 9.9 RBC 3.91 Hgb 11.2 L Hct 34.7 L MCV 89 MCH 28.6 MCHC 32.2 RDW 14.5 H Plt Count 346 Seg Neutrophils % 83.8 H Lymphocytes % 9.0 L Monocytes % 7.0 Eosinophils % 0.0 Basophils % 0.2 Absolute Neutrophils 8.3 H Absolute Lymphocytes 0.9 Absolute Monocytes 0.7 Absolute Eosinophils 0.0 Absolute Basophils 0.0 Sodium 139.9 Potassium 4.4 Chloride 100 Carbon Dioxide 28 Anion Gap 12 BUN 19 Creatinine 0.92 Est GFR ( Amer) > 60 Est GFR (Non-Af Amer) > 60 Glucose 120 H Calcium 8.9 10/26/16 09:23 Troponin I 0.038 Impressions: Chest X-Ray 10/26/16 00:19 IMPRESSION: No acute radiographic finding in the chest. Fluoroscopy 10/27/16 00:00 IMPRESSION: IMAGE(S) OBTAINED DURING PROCEDURE. Shoulder X-Ray 10/27/16 00:00 IMPRESSION: IMAGE(S) OBTAINED DURING PROCEDURE. Assessment & Plan - Diagnosis (1) Fracture of humerus, proximal, right, closed Qualifiers: Encounter type: subsequent encounter Fracture alignment: displaced Is this a current diagnosis for this admission?: YesPlan: Patient is ORIF postop day 1 management per orthopedics. (2) HTN urgency Is this a current diagnosis for this admission?: YesPlan: Patient is now normotensive, will continue current medications (3) Noncompliance with medication regimen Is this a current diagnosis for this admission?: YesPlan: Counseled (4) Tobacco user Is this a current diagnosis for this admission?: YesPlan: Counseled - Time Time Spent with patient: 25-34 minutes Critical Time spent with patient: 15-24 minutes Smoking Cessation Education: 3 to 10 minutes Medications reviewed and adjusted accordingly: Yes Anticipated discharge: Home Within: within 24 hours
[2016-10-28] MEDS: TRAZODONE HCL 50 MG TABLET PO SCH (22:00)
[2016-10-29] MEDS: LANSOPRAZOLE 30 MG TAB.RAP.DR PO SCH (06:08)
[2016-10-29] MEDS: VERAPAMIL HCL 180 MG TABLET.SA PO SCH (10:00)
[2016-10-29] MEDS: DOCUSATE SODIUM 100 MG CAPSULE PO SCH (10:01)
[2016-10-29] MEDS: HYDROCHLOROTHIAZIDE 25 MG TABLET PO SCH (10:02)
[2016-10-29] MEDS: LISINOPRIL 10 MG TABLET PO SCH (10:10)
[2016-10-29] MEDS: METOPROLOL SUCCINATE 50 MG TAB.SR.24H PO SCH (10:12)
[2016-10-29] MEDS: OXYCODONE HCL IR 5 MG TABLET PO PRN (10:25)
[2016-10-29] MEDS ORDERED: BISACODYL 10 MG SUPP.RECT PR ONE (10:53)
[2016-10-29] MEDS ORDERED: NA PHOS,M-B/NA PHOS,DI-BA (ADULT) 133 ML ENEMA PR PRN (10:54)
[2016-10-29 12:58] VITALS: BP 146/70
--- NOTE | 2016-10-29 14:51 | PDOC DISCHARGE SUMMARY ---
General - Admit/Disc Date/PCP Admission Date/Primary Care Provider: 10/26/16 07:37 KRISTOPHER HAYWOOD-Jennifer Discharge Date: 10/29/16 - Discharge Diagnosis (1) Fracture of humerus, proximal, right, closed Is this a current diagnosis for this admission?: YesSummary: Patient is post op day #2 right shoulder arthroplasty Shoulder is in a sling. She will follow up with Dr Blancas (2) HTN urgency Is this a current diagnosis for this admission?: YesSummary: Resolved (3) Noncompliance with medication regimen Is this a current diagnosis for this admission?: YesSummary: Counseled (4) Tobacco user Is this a current diagnosis for this admission?: YesSummary: Counseled - Additional Information Resuscitation Status: Full Code Discharge Diet: As Tolerated, Cardiac Discharge Activity: Activity As Tolerated Home Medications: Acetaminophen/Diphenhydramine [Tylenol Pm Ex-Strength Caplet] 1 tab PO QHS 10/26 Ibuprofen [Advil] 200 mg PO DAILYP PRN 10/26/16 Lisinopril/Hydrochlorothiazide [Zestoretic 20-12.5 mg Tablet] 2 tab PO DAILY Metoprolol Succinate [Toprol XL 100 mg Tablet] 100 mg PO DAILY 10/26/16 Trazodone HCl [Desyrel 50 mg Tablet] 100 mg PO QHS 10/26/16 Verapamil HCl [Verapamil Sr] 360 mg PO DAILY 10/26/16 Acetaminophen [Tylenol 325 mg Tablet] 650 mg PO Q4HP PRN tablet 10/29/16 Docusate Sodium [Colace 100 mg Capsule] 100 mg PO BID capsule 10/29/16 Oxycodone HCl [Oxy-Ir 5 mg Tablet] 5 mg PO Q4HP PRN #18 tablet 10/29/16 Polyethylene Glycol 3350 [Miralax Powder 17 gm/Packet] 17 gm PO DAILYP PRN powd.pack 10/29/16 History of Present Illness Patient complains of: Right shoulder pain History of Present Illness: SALVADOR CAMACHO is a 60 year old female sitting on a couch when the soft cushions led to her slip and fall. She landed onto her right shoulder and had immediate onset right shoulder pain. X-rays in the emergency room demonstrated a right proximal humerus fracture. Orthopedics was consulted for fracture management. Hospital Course Hospital Course: Patient was admitted to the telemetry floor on hospitalist service. Orthopedic surgery, Dr. Blancas, saw the patient in consult. Patient was taken the following day to the operating room to undergo a right shoulder hemiarthroplasty. She tolerated procedure well she was returned to the floor postoperatively. Physical therapy saw the patient in consult the following day. She was slow to ambulate due to pain. She did not feel she was able to to go home and be independent since she was alone. Today her pain is much improved. Case management was consulted, home health was arranged for the patient post discharge. Physical Exam Vital Signs: Temp Pulse Resp BP Pulse Ox 98.5 F 69 18 146/70 H 93 10/29/16 12:56 10/29/16 12:56 10/29/16 12:56 10/29/16 12:56 10/29/16 12:56 Intake & Output 10/28/16 10/29/16 10/30/16 06:59 06:59 06:59 Intake Total 3575 1012 Output Total 475 Balance 3100 1012 General appearance: PRESENT: no acute distress, obese, well-developed, well- nourished Head exam: PRESENT: atraumatic Eye exam: PRESENT: conjunctiva pink, EOMI, PERRLA. ABSENT: scleral icterus Ear exam: PRESENT: normal external ear exam Mouth exam: PRESENT: moist, tongue midline Neck exam: ABSENT: carotid bruit, JVD, lymphadenopathy, thyromegaly Respiratory exam: PRESENT: clear to auscultation orquidea. ABSENT: rales, rhonchi, wheezes Cardiovascular exam: PRESENT: RRR. ABSENT: diastolic murmur, rubs, systolic murmur Pulses: PRESENT: normal dorsalis pedis pul Vascular exam: PRESENT: normal capillary refill GI/Abdominal exam: PRESENT: normal bowel sounds, soft. ABSENT: distended, guarding, mass, organolmegaly, rebound, tenderness Rectal exam: PRESENT: deferred Extremities exam: PRESENT: full ROM, other - Right shoulder in sling.. ABSENT: calf tenderness, clubbing, pedal edema Musculoskeletal exam: PRESENT: ambulatory, tenderness - Right shoulder Neurological exam: PRESENT: alert, awake, oriented to person, oriented to place , oriented to time, oriented to situation, CN II-XII grossly intact. ABSENT: motor sensory deficit Psychiatric exam: PRESENT: appropriate affect, normal mood. ABSENT: homicidal ideation, suicidal ideation Skin exam: PRESENT: dry, intact, warm. ABSENT: cyanosis, rash Results Laboratory Results: 10/28/16 04:18 10/28/16 04:18 10/26/16 09:23 Troponin I 0.038 Impressions: Chest X-Ray 10/26/16 00:19 IMPRESSION: No acute radiographic finding in the chest. Fluoroscopy 10/27/16 00:00 IMPRESSION: IMAGE(S) OBTAINED DURING PROCEDURE. Shoulder X-Ray 10/27/16 00:00 IMPRESSION: IMAGE(S) OBTAINED DURING PROCEDURE. Qualifiers PATEINT BEING DISCHARGED WITH ANY OF THE FOLLOWING DIAGNOSIS?: No Plan Discharge Plan: Home with home health. Time Spent: Less than 30 Minutes
== END 2016-10-29 13:30 | disposition home or self-care (01) ==
LOC: ER 22:43 → EH 10-26 07:37 → 4N 10-26 08:30
PROC: 0PSC04Z Reposition Right Humeral Head with Internal Fixation Device, Open Approach (ICD-10-PCS; principal; 2016-10-27 12:30)
PROC: HZ31ZZZ Individual Counseling for Substance Abuse Treatment, Behavioral (ICD-10-PCS; 2016-10-28)
DX: S42.291A Other displaced fracture of upper end of right humerus, initial encounter for closed fracture (principal); W08.XXXA Fall from other furniture, initial encounter; Y93.89 Activity, other specified; Y92.009 Unspecified place in unspecified non-institutional (private) residence as the place of occurrence of the external cause; I16.0 Hypertensive urgency; Z91.14 Patient's other noncompliance with medication regimen; I42.1 Obstructive hypertrophic cardiomyopathy; E87.6 Hypokalemia; G40.909 Epilepsy, unspecified, not intractable, without status epilepticus; E66.9 Obesity, unspecified; Z72.0 Tobacco use; Z90.49 Acquired absence of other specified parts of digestive tract; Z86.73 Personal history of transient ischemic attack (TIA), and cerebral infarction without residual deficits; Z82.49 Family history of ischemic heart disease and other diseases of the circulatory system; Z85.43 Personal history of malignant neoplasm of ovary; Z60.2 Problems related to living alone; Z98.890 Other specified postprocedural states; Z68.33 Body mass index [BMI] 33.0-33.9, adult
CPT/HCPCS: 93005 ×2; 99285; 36415 ×3; 85025; 80048 ×3; 84484; 80061; 71010; 73030 ×2; 93010 ×2; 97110; 97162 ×2; 23615; 99406; G0378 ×5; C1713; J3490 ×42; J2250; J0690; J1100; S0119; J3010; J1170; J2405; J7120; J2704; 01630

== ENCOUNTER 2017-03-30 19:30 | Emergency (ER) | payer MEDICAID ==
--- NOTE | 2017-03-30 20:08 | RADIOLOGY REPORT (SQ) ---
EXAM DESCRIPTION: CHEST SINGLE VIEW COMPLETED DATE/TIME: 03/30/2017 7:59 pm REASON FOR STUDY: cp COMPARISON: 10/26/2016. EXAM PARAMETERS: NUMBER OF VIEWS: One view. TECHNIQUE: Single frontal radiographic view of the chest acquired. RADIATION DOSE: NA LIMITATIONS: None. FINDINGS: LUNGS AND PLEURA: No opacities, masses or pneumothorax. No pleural effusion. MEDIASTINUM AND HILAR STRUCTURES: No masses. Contour normal. HEART AND VASCULAR STRUCTURES: Heart normal in size. Normal vasculature. BONES: No acute findings. HARDWARE: Hardware in the right humerus. OTHER: No other significant finding. IMPRESSION: NO ACUTE RADIOGRAPHIC FINDING IN THE CHEST. TECHNICAL DOCUMENTATION: JOB ID: [id number] [employer]- All Rights Reserved
[2017-03-30 20:18] LABS: ABSOLUTE BASOPHILS # (AUTO) 0.1 10^3/uL (0.0-0.2); ABSOLUTE EOSINOPHILS # (AUTO) 0.1 10^3/uL (0.0-0.6); ABSOLUTE LYMPHOCYTES (AUTO) 2.3 10^3/uL (0.5-4.7); ABSOLUTE MONOCYTES (AUTO) 0.7 10^3/uL (0.1-1.4); ABSOLUTE NEUT (AUTO) 3.7 10^3/uL (1.7-8.2); BASOPHILS % (AUTO) 1.1 % (0-2); EOSINOPHILS % (AUTO) 1.5 % (0-6); HEMATOCRIT 37.2 % (36.0-47.0); HEMOGLOBIN 12.5 g/dL (12.0-15.5); HGB HCT DIFFERENCE 0.3; LYMPHOCYTES % (AUTO) 33.6 % (13-45); MEAN CORPUSCULAR HEMOGLOBIN 29.3 pg (27.0-33.4); MEAN CORPUSCULAR HGB CONC 33.5 g/dL (32.0-36.0); MEAN CORPUSCULAR VOLUME 87 fl (80-97); MONOCYTES % (AUTO) 10.2 % (3-13); RED BLOOD COUNT 4.26 10^6/uL (3.72-5.28); SEGMENTED NEUTROPHILS % (AUTO) 53.6 % (42-78); WHITE BLOOD COUNT 6.9 10^3/uL (4.0-10.5)
--- NOTE | 2017-03-30 20:37 | ER Document Report ---
ED Cardiac - General Chief Complaint: Chest Pain Stated Complaint: CHEST PAIN Time Seen by Provider: 03/30/17 20:00 Notes: Patient is a 61-year-old female that comes emergency department for chief complaint of chest pain, she states pain is on the center to left side of her chest, feels like a pressure, radiating down her left arm earlier. She states she also has pain over the left side of her chest on her chest wall but states this is not the same pain that she was having earlier. She states that after taking 324 mg of aspirin she still has a mild discomfort over the left side but she does not feel any pressure or arm pain. She denies shortness of breath, nausea or vomiting, cough, fever. Denies injury. Past medical history of hypertension, on 3 different medications for this. She denies smoking. She states her mom had heart attack. She denies any other medical history other than being frequently constipated and needing a stool softener for it. She states she had a stress test that was negative about 5 years ago. TRAVEL OUTSIDE OF THE [place] IN LAST 30 DAYS: No - Related Data Allergies/Adverse Reactions: Nitrate Analogues Adverse Reaction (Verified 03/30/17 20:10) Hypertrophic Cardiomyopathy Past Medical History - General Information source: Patient - Social History Smoking Status: Never Smoker Frequency of alcohol use: None Drug Abuse: None Lives with: Family Family History: CAD - Uncle, grandfather with CAD by age 50. Mother of an [place] at age 59., Hypertension Patient has suicidal ideation: No Patient has homicidal ideation: No - Past Medical History Cardiac Medical History: Reports: Hx Hypertension Neurological Medical History: Reports: Hx Cerebrovascular Accident Renal/ Medical History: Denies: Hx Peritoneal Dialysis Malignancy Medical History: Reports: Hx Ovarian Cancer Psychiatric Medical History: Reports: Hx Bipolar Disorder Denies: Hx Depression Past Surgical History: Reports: Hx Cholecystectomy, Hx Hysterectomy, Hx Neurologic Surgery, Hx Tonsillectomy, Hx Tubal Ligation - Immunizations Hx Diphtheria, Pertussis, Tetanus Vaccination: Yes Review of Systems - Review of Systems Constitutional: No symptoms reported EENT: No symptoms reported Cardiovascular: See HPI Respiratory: No symptoms reported Gastrointestinal: No symptoms reported Genitourinary: No symptoms reported Female Genitourinary: No symptoms reported Musculoskeletal: See HPI Skin: No symptoms reported Hematologic/Lymphatic: No symptoms reported Neurological/Psychological: No symptoms reported Physical Exam - Vital signs Vitals: Temp 98.2 F 03/30/17 19:35 Interpretation: Normal - General General appearance: Appears well, Alert - HEENT Head: Normocephalic, Atraumatic Eyes: Normal Pupils: PERRL - Respiratory Respiratory status: No respiratory distress Chest status: Tender - Mild tenderness over the left anterior chest wall at about the third through fifth ribs bases, no significant tenderness, no erythema , induration, crepitus, or deformity Breath sounds: Normal. No: Decreased air movement, Nonproductive cough, Productive cough, Wheezing Chest palpation: Normal - Cardiovascular Rhythm: Regular. No: Tachycardia Heart sounds: Normal auscultation, S1 appreciated, S2 appreciated Murmur: No - Abdominal Inspection: Normal Distension: No distension Bowel sounds: Normal Tenderness: Nontender. No: Tender, Guarding Organomegaly: No organomegaly - Back Back: Normal, Nontender. No: Tender - Extremities General upper extremity: Normal inspection, Nontender, Normal strength, Normal temperature General lower extremity: Normal inspection, Nontender, Normal strength, Normal temperature - Neurological Neuro grossly intact: Yes Cognition: Normal Orientation: AAOx4 [place] Coma Scale Eye Opening: Spontaneous [place] Coma Scale Verbal: Oriented [place] Coma Scale Motor: Obeys Commands [place] Coma Scale Total: 15 Speech: Normal Motor strength normal: LUE, RUE, LLE, RLE Sensory: Normal - Psychological Associated symptoms: Normal affect, Normal mood - Skin Skin Temperature: Warm Skin Moisture: Dry Skin Color: Normal Course - Re-evaluation Re-evalutation: EKG shows sinus rhythm at a rate of 64, no T-wave inversions or ST segment changes in consecutive leads, borderline prolonged QT interval at QTC of 496. Given patient's symptoms, history, workup her heart score is 3. Patient has mild left-sided chest wall pain on initial evaluation, she denies any other pain at this time. CBC, chemistry, cardiac enzymes unremarkable. Chest x-ray unremarkable. Patient began to complain of pain in the epigastric area on repeat evaluation, she was given a GI cocktail and shortly after the symptoms completely resolved. Patient called me back to the room, she is requesting to leave. She states that she feels great now after the GI cocktail and she has good follow-up with her primary care but she needs to go home now. Patient's symptoms started this morning, over 12 hours before the troponin was performed, heart score of 3, negative workup to up to this point, chest wall pain on exam, symptoms resolving with GI cocktail. Low suspicion of ACS, pulmonary embolus, aortic dissection. Patient is very well-appearing. Discharged with close followup instructions, discussed return precautions, patient states understanding and agreement. - Vital Signs Vital signs: Temp Pulse Resp BP Pulse Ox 98.6 F 19 174/96 H 100 03/30/17 22:55 03/30/17 22:55 03/30/17 22:55 03/30/17 22:55 - Laboratory Result Diagrams: 03/30/17 20:05 03/30/17 20:05 Laboratory results interpreted by me: 03/30/17 03/30/17 20:05 20:05 RDW 15.0 H Est GFR (Non-Af Amer) 51 L Alkaline Phosphatase 129 H Discharge - Discharge Clinical Impression: Epigastric pain Chest pain Qualifiers: Chest pain type: unspecified Qualified Code(s): R07.9 - Chest pain, unspecified Condition: Stable Disposition: HOME, SELF-CARE Additional Instructions: Your workup to this point does not show any abnormalities. Please call your provider tomorrow to establish close follow-up, I recommend close follow-up with the cardiology referral. Take the famotidine as prescribed if needed because of your symptoms today. Return if you worsen in any way including difficulty breathing, return or worsening pain, vomiting, or any other concerning symptoms. Prescriptions: Famotidine [Pepcid 20 mg Tablet] 20 mg PO BID #20 tablet Referrals: SHARON JONES MD [ACTIVE STAFF] - Follow up as needed
[2017-03-30 20:40] LABS: ALANINE AMINOTRANSFERASE 29 U/L (9-52); ALBUMIN 4.1 g/dL (3.5-5.0); ALKALINE PHOSPHATASE 129 U/L (38-126); ANION GAP 12 (5-19); ASPARTATE AMINO TRANSFERASE 16 U/L (14-36); BILIRUBIN,DIRECT 0.1 mg/dL (0.0-0.4); BILIRUBIN,TOTAL 0.3 mg/dL (0.2-1.3); BLOOD UREA NITROGEN 20 mg/dL (7-20); CALCIUM 9.6 mg/dL (8.4-10.2); CARBON DIOXIDE 30 mmol/L (22-30); CHLORIDE 102 mmol/L (98-107); CREATINE KINASE 67 U/L (30-135); CREATININE RESULT 1.09 mg/dL (0.52-1.25); GLUCOSE 86 mg/dL (75-110); POTASSIUM 3.8 mmol/L (3.6-5.0); SODIUM 143.7 mmol/L (137-145); TOTAL PROTEIN 7.5 g/dL (6.3-8.2)
[2017-03-30 20:51] LABS: CREATINE KINASE MB 1.19 ng/mL (<4.55)
[2017-03-30 20:54] LABS: TROPONIN I < 0.012 ng/mL
[2017-03-30] MEDS ORDERED: METOCLOPRAMIDE HCL ORAL SOLN 10 MG/10 ML UDCUP PO ONE (21:22)
[2017-03-30] MEDS ORDERED: MAG HYDROX/AL HYDROX/SIMETH SUSP 30 ML UDCUP PO ONE (21:22)
[2017-03-30] MEDS ORDERED: LIDOCAINE 2% VISCOUS SOLN 20 ML UDCUP PO ONE (21:22)
[2017-03-30 22:59] VITALS: BP 174/96
--- NOTE | 2017-03-31 08:09 | EKG REPORT ---
SEVERITY:- ABNORMAL ECG - SINUS RHYTHM PROBABLE LEFT ATRIAL ABNORMALITY LEFT VENTRICULAR HYPERTROPHY BORDERLINE PROLONGED QT INTERVAL : Confirmed by: Cesar Urrutia MD 31-Mar-2017 08:08:46
== END 2017-03-30 23:00 | disposition home or self-care (01) ==
LOC: ER 19:30
DX: R07.9 Chest pain, unspecified (principal); R10.13 Epigastric pain; M79.602 Pain in left arm
CPT/HCPCS: 93005; 99285; 36415; 82553; 82550; 85025; 80053; 84484; 71010; 93010; J3490 ×3

== ENCOUNTER 2017-09-28 15:49 | Emergency (ER) | payer MEDICAID ==
[2017-09-28] MEDS ORDERED: MECLIZINE HCL 25 MG TABLET PO ONE (16:35)
[2017-09-28] MEDS ORDERED: ONDANSETRON 4 MG TAB.RAPDIS PO ONE (16:36)
[2017-09-28] MEDS ORDERED: ASPIRIN 81 MG TABLET, CHEWABLE PO ONE (16:40)
--- NOTE | 2017-09-28 16:42 | ER Document Report ---
ED Medical Screen (RME) - General Chief Complaint: Dizziness Stated Complaint: DIZZYNESS Time Seen by Provider: 09/28/17 16:32 Mode of Arrival: Ambulatory Information source: Patient TRAVEL OUTSIDE OF THE [place] IN LAST 30 DAYS: No - HPI Notes: 09/28/17 16:42 61 yr old female with hx of cerebral aneurysm, HTN and left sided stroke x 3 years ago with complaints of progressive dizziness, LH that caused her nausea. This started at 1400 after getting up from a nap, reports that "room is spinning ". reports she has had vertigo in the past, but has never had this checked out. Denies any vomiting, diarrhea. no new medications, travel or foods. Reports she started to experience chest pain while in the waiting room, fleeting, sharp and stabbing, traveled down left arm, at rest, lasted for a few seconds. Denies any sob. She sees Dr. Conley, cardiology, was recently seen on 2017 for holter monitor. Denies any n/t down arms,fevers, chills, sob, rashes, speech changes, blurred vision, double vision or loss of vision. Did take 81mg of baby asa today. I have greeted and performed a rapid initial assessment of this patient. A comprehensive ED assessment and evaluation of the patient, analysis of test results and completion of the medical decision making process will be conducted by additional ED providers. - Related Data Allergies/Adverse Reactions: Nitrate Analogues Adverse Reaction (Verified 03/30/17 20:10) Hypertrophic Cardiomyopathy Past Medical History - Past Medical History Cardiac Medical History: Reports: Hx Hypertension Neurological Medical History: Reports: Hx Cerebrovascular Accident Renal/ Medical History: Denies: Hx Peritoneal Dialysis Malignancy Medical History: Reports: Hx Ovarian Cancer Psychiatric Medical History: Reports: Hx Bipolar Disorder Denies: Hx Depression Past Surgical History: Reports: Hx Cholecystectomy, Hx Hysterectomy, Hx Neurologic Surgery, Hx Tonsillectomy, Hx Tubal Ligation - Immunizations Hx Diphtheria, Pertussis, Tetanus Vaccination: Yes Physical Exam - Vital signs Vitals: Temp Pulse Resp BP Pulse Ox 98.6 F 59 L 18 132/61 H 95 09/28/17 16:01 09/28/17 16:01 09/28/17 16:01 09/28/17 16:01 09/28/17 16:01 - General General appearance: Appears well In distress: None - Respiratory Respiratory status: No respiratory distress Chest status: Nontender Breath sounds: Normal Chest palpation: Normal - Cardiovascular Rhythm: Regular Heart sounds: Normal auscultation Normal capillary refill: Yes Course - Vital Signs Vital signs: Temp Pulse Resp BP Pulse Ox 98.6 F 59 L 18 132/61 H 95 09/28/17 16:01 09/28/17 16:01 09/28/17 16:01 09/28/17 16:01 09/28/17 16:01 - Laboratory Result Diagrams: 09/28/17 17:12 09/28/17 17:12 Doctor's Discharge - Discharge Referrals: SJ CLEMENTS PA-C [NO LOCAL MD] - Follow up as needed
[2017-09-28 17:29] LABS: ABSOLUTE EOSINOPHILS # (AUTO) 0.1 10^3/uL (0.0-0.6); ABSOLUTE LYMPHOCYTES (AUTO) 1.8 10^3/uL (0.5-4.7); ABSOLUTE MONOCYTES (AUTO) 0.5 10^3/uL (0.1-1.4); ABSOLUTE NEUT (AUTO) 6.7 10^3/uL (1.7-8.2); BASOPHILS % (AUTO) 0.5 % (0-2); EOSINOPHILS % (AUTO) 1.1 % (0-6); HEMOGLOBIN 12.9 g/dL (12.0-15.5); LYMPHOCYTES % (AUTO) 19.9 % (13-45); MEAN CORPUSCULAR HEMOGLOBIN 28.3 pg (27.0-33.4); MEAN CORPUSCULAR VOLUME 86 fl (80-97); MONOCYTES % (AUTO) 5.2 % (3-13); PLATELET COUNT 475 10^3/uL (150-450); RED BLOOD COUNT 4.55 10^6/uL (3.72-5.28); RED CELL DISTRIBUTION WIDTH 14.9 % (11.5-14.0); SEGMENTED NEUTROPHILS % (AUTO) 73.3 % (42-78); TOTAL CELLS COUNTED % (AUTO) 100 %; WHITE BLOOD COUNT 9.1 10^3/uL (4.0-10.5)
[2017-09-28 17:39] LABS: ALANINE AMINOTRANSFERASE 21 U/L (9-52); ALBUMIN 4.3 g/dL (3.5-5.0); ALKALINE PHOSPHATASE 118 U/L (38-126); ANION GAP 12 (5-19); ASPARTATE AMINO TRANSFERASE 19 U/L (14-36); BILIRUBIN,DIRECT 0.3 mg/dL (0.0-0.4); BILIRUBIN,TOTAL 0.4 mg/dL (0.2-1.3); BLOOD UREA NITROGEN 20 mg/dL (7-20); CALCIUM 9.9 mg/dL (8.4-10.2); CARBON DIOXIDE 32 mmol/L (22-30); CHLORIDE 101 mmol/L (98-107); CREATINE KINASE 87 U/L (30-135); GLUCOSE 104 mg/dL (75-110); POTASSIUM 3.6 mmol/L (3.6-5.0); SODIUM 145.4 mmol/L (137-145); TOTAL PROTEIN 8.1 g/dL (6.3-8.2)
[2017-09-28 17:51] LABS: CREATINE KINASE MB 1.37 ng/mL (<4.55)
[2017-09-28 17:52] LABS: TROPONIN I < 0.012 ng/mL
--- NOTE | 2017-09-28 18:13 | RADIOLOGY REPORT (SQ) ---
EXAM DESCRIPTION: CHEST SINGLE VIEW COMPLETED DATE/TIME: 09/28/2017 6:00 pm REASON FOR STUDY: DIZZINESS COMPARISON: 12/06/2015 EXAM PARAMETERS: NUMBER OF VIEWS: One view. TECHNIQUE: Single frontal radiographic view of the chest acquired. RADIATION DOSE: NA LIMITATIONS: None. FINDINGS: LUNGS AND PLEURA: No opacities, masses or pneumothorax. No pleural effusion. MEDIASTINUM AND HILAR STRUCTURES: No masses. Contour normal. HEART AND VASCULAR STRUCTURES: Heart normal in size. Normal vasculature. BONES: Operative change proximal right humerus. HARDWARE: None in the chest. OTHER: No other significant finding. IMPRESSION: NO ACUTE RADIOGRAPHIC FINDING IN THE CHEST. TECHNICAL DOCUMENTATION: JOB ID: [id number] [employer]- All Rights Reserved Reading location - IP/workstation name: [email or web address]
--- NOTE | 2017-09-28 18:49 | EKG REPORT ---
SEVERITY:- ABNORMAL ECG - SINUS RHYTHM LEFT VENTRICULAR HYPERTROPHY BORDERLINE T ABNORMALITIES, INFERIOR LEADS : Confirmed by: Jose Manuel Conley 28-Sep-2017 18:49:20
--- NOTE | 2017-09-28 20:31 | ER Document Report ---
ED General - General Chief Complaint: Dizziness Stated Complaint: DIZZYNESS Time Seen by Provider: 09/28/17 16:32 Mode of Arrival: Ambulatory Notes: Patient is a 61-year-old female with a past medical history of hypertension, prior CVA with residual right-sided deficits who presents with approximately 6- 8 hours of persistent vertigo. Patient states when she woke up she had severe dizziness and felt like she could not hardly get out of bed. Patient states that she has not walked since the onset of her symptoms for fear that she would fall. She states that sitting up seem to make the symptoms even worse. She notes the meclizine that has been given here in the emergency department does not seem to have significantly improved her symptoms. She denies any history of similar symptoms in the past. She has not seen her general doctor regarding today's concerns. She denies any associated chest pain, shortness of breath, vomiting, focal weakness or numbness that is new from her baseline. Denies any recent head trauma. She does note some mild pain over her right maxillary sinus that is a dull, constant, throbbing pain. Nothing improves or worsens that pain. TRAVEL OUTSIDE OF THE [place] IN LAST 30 DAYS: No - Related Data Allergies/Adverse Reactions: Nitrate Analogues Adverse Reaction (Verified 03/30/17 20:10) Hypertrophic Cardiomyopathy Past Medical History - General Information source: Patient - Social History Smoking Status: Never Smoker Chew tobacco use (# tins/day): No Frequency of alcohol use: None Drug Abuse: None Lives with: Family Family History: CAD - Uncle, grandfather with CAD by age 50. Mother of an [place] at age 59., Hypertension Patient has suicidal ideation: No Patient has homicidal ideation: No - Past Medical History Cardiac Medical History: Reports: Hx Hypertension Neurological Medical History: Reports: Hx Cerebrovascular Accident Renal/ Medical History: Denies: Hx Peritoneal Dialysis Malignancy Medical History: Reports: Hx Ovarian Cancer Psychiatric Medical History: Reports: Hx Bipolar Disorder Denies: Hx Depression Past Surgical History: Reports: Hx Cholecystectomy, Hx Hysterectomy, Hx Neurologic Surgery, Hx Tonsillectomy, Hx Tubal Ligation - Immunizations Hx Diphtheria, Pertussis, Tetanus Vaccination: Yes Review of Systems - Review of Systems Notes: Constitutional: Negative for fever. HENT: Negative for sore throat. Eyes: Negative for visual changes. Cardiovascular: Negative for chest pain. Respiratory: Negative for shortness of breath. Gastrointestinal: Negative for abdominal pain, positive for nausea Genitourinary: Negative for dysuria. Musculoskeletal: Negative for back pain. Skin: Negative for rash. Neurological: Positive for vertigo 10 point ROS negative except as marked above and in HPI. Physical Exam - Vital signs Vitals: Temp Pulse Resp BP Pulse Ox 98.6 F 59 L 18 132/61 H 95 09/28/17 16:01 09/28/17 16:01 09/28/17 16:01 09/28/17 16:01 09/28/17 16:01 Interpretation: Bradycardic Notes: PHYSICAL EXAMINATION: GENERAL: Appears mildly uncomfortable but in no acute distress HEAD: Atraumatic, normocephalic. EYES: Pupils equal round and reactive to light, extraocular movements intact, sclera anicteric, conjunctiva are normal. ENT: nares patent, oropharynx clear without exudates. Moist mucous membranes. TMs clear bilaterally without effusion. NECK: Normal range of motion, supple without lymphadenopathy LUNGS: Breath sounds clear to auscultation bilaterally and equal. No wheezes rales or rhonchi. HEART: Regular rate and rhythm without murmurs ABDOMEN: Soft, nontender, normoactive bowel sounds. No guarding, no rebound. No masses appreciated. EXTREMITIES: Normal range of motion, no pitting or edema. No cyanosis. NEUROLOGICAL: Face symmetric. Tongue protrudes midline. Extraocular motions intact. Pupils are 2 mm and equally reactive. Normal speech, gait deferred per patient request. 4+ out of 5 strength both distally and proximally in the right upper and lower extremity, 5 out of 5 on the left both upper and lower distally and proximally. Sensation is grossly intact throughout. Finger to nose testing normal. Pronator drift normal. PSYCH: Normal mood, normal affect. SKIN: Warm, Dry, normal turgor, no rashes or lesions noted. Course - Re-evaluation Re-evalutation: 09/28/17 20:31 The patient presents with vertigo that has been unrelenting since it started approximately 3-4 hours ago. The patient has no focal deficits on exam with exception of some mild right-sided upper and lower extremity weakness 4+ out of 5 which she states is baseline from a prior aneurysmal stroke. She does have some horizontal nystagmus on examination but no vertical gaze deviation, no abnormal cerebellar testing. However the patient states that she is so a vertiginous ataxic that she is unable to ambulate. Will therefore proceed with an MRI of her head to further evaluate for the possibility of cerebellar stroke. Her labs are otherwise unremarkable. In the interim we will treat with meclizine and Valium and see if this improves the patient's symptoms. 09/28/17 23:23 MRI of the head unremarkable without any evidence of a cerebellar infarction. The patient has had mild improvement of her symptoms. Right maxillary sinus disease is noted which could be a trigger for vestibular neuritis. The patient is being started on Augmentin and has been given a dose of dexamethasone here in the emergency department. I have instructed her to take meclizine at home as needed for ongoing vertigo and follow-up with ENT. At this time will discharge with return precautions and follow-up recommendations. Verbal discharge instructions given a the bedside and opportunity for questions given. Medication warnings reviewed. Patient is in agreement with this plan and has verbalized understanding of return precautions and the need for primary care follow-up in the next 24-72 hours. - Vital Signs Vital signs: Temp Pulse Resp BP Pulse Ox 98.7 F 59 L 15 136/71 H 96 09/28/17 23:47 09/28/17 16:01 09/28/17 23:47 09/28/17 23:47 09/28/17 23:47 - Laboratory Result Diagrams: 09/28/17 17:12 09/28/17 17:12 Laboratory results interpreted by me: 09/28/17 09/28/17 17:12 17:12 RDW 14.9 H Plt Count 475 H Sodium 145.4 H Carbon Dioxide 32 H Est GFR (Non-Af Amer) 52 L - Diagnostic Test Radiology reviewed: Reports reviewed Discharge - Discharge Clinical Impression: Vertigo, Right maxillary sinusitis, Nausea Condition: Good Disposition: HOME, SELF-CARE Additional Instructions: You were seen today for lightheadedness/dizziness. The exact cause of your symptoms is unclear but your workup here is reassuring without any concerning findings. Your MRI of the head is normal and does not suggest a stroke as the cause of your symptoms. You likely have what is called a vestibular neuritis, possibly triggered by a right maxillary sinus infection. Your being started on Augmentin to treat this infection. You have also been given a dose of steroid here in the emergency department to assist with your vertigo. You may take the meclizine has been prescribed as needed for ongoing vertigo. Please follow closely with your primary care physician in the next 1-3 days. If you are not having improvement of your symptoms after 2-3 days please follow-up with ENT. Return if you pass out, have additional episodes of lightheadedness, develop weakness/numbness, have persistent vomiting, chest pain, shortness of breath or any other symptoms that are concerning to you Prescriptions: Meclizine HCl 25 mg PO Q6HP PRN #20 tablet PRN Reason: Amox Tr/Potassium Clavulanate [Augmentin 875-125 Tablet] 1 tab PO BID 10 Days tablet Referrals: SJ CLEMENTS PA-C [NO LOCAL MD] - Follow up in 3-5 days RICHARD SMITH DO [ASSOCIATE] - Follow up in 3-5 days
[2017-09-28] MEDS ORDERED: DIAZEPAM 2 MG TABLET PO ONE (20:32)
--- NOTE | 2017-09-28 22:40 | RADIOLOGY REPORT (SQ) ---
EXAM DESCRIPTION: MRI HEAD WITHOUT COMPLETED DATE/TIME: 09/28/2017 9:48 pm REASON FOR STUDY: eval cerebellar stroke COMPARISON: CT brain 12/06/2015 TECHNIQUE: Multiplanar imaging includes non-contrasted T1, T2, FLAIR, and diffusion with ADC map seq uences. Images stored on PACS. LIMITATIONS: None. FINDINGS: ANATOMY: No anomalies. Normal vascular flow voids. Pituitary fossa normal. CSF SPACES: Normal in size and contour. No hemorrhage. CEREBRUM: There is an old right frontal infarct and an old right posterior parietal infarct. No acut e hemorrhage or infarction is seen. There is no midline shift or mass effect. POSTERIOR FOSSA: No signal alteration. No hemorrhage. No edema, masses or mass effect. Internal lorene tory canals, cerebello-pontine angles, mastoids normal. DIFFUSION IMAGING: Negative for acute or sub-acute infarction. ORBITS: No masses. Globes normal. PARANASAL SINUSES: Mucous retention cyst in the right maxillary sinus. OTHER: Aneurysm clip in the left base. IMPRESSION: 1. Old right-sided infarcts. No acute infarction. 2. Right maxillary sinus disease. EVIDENCE OF ACUTE STROKE: NO. TECHNICAL DOCUMENTATION: JOB ID: [id number] [employer]- All Rights Reserved Reading location - IP/workstation name: [email or web address]
[2017-09-28] MEDS ORDERED: AMOXICILLIN TR/POT CLAVULANATE 500-125 MG TAB PO ONE (23:20)
[2017-09-28] MEDS ORDERED: DEXAMETHASONE 4 MG TABLET PO ONE (23:23)
[2017-09-29 00:06] VITALS: BP 136/71
== END 2017-09-29 00:05 | disposition home or self-care (01) ==
LOC: ER 15:49
DX: R42 Dizziness and giddiness (principal); J32.0 Chronic maxillary sinusitis; I69.351 Hemiplegia and hemiparesis following cerebral infarction affecting right dominant side; R11.0 Nausea
CPT/HCPCS: 93005; 99284; 36415; 82553; 82550; 83735; 85025; 80053; 84484; 70551; 71045; 93010; J3490 ×3; S0119

== ENCOUNTER 2018-05-29 22:36 | Emergency (ER) | payer MEDICAID ==
[2018-05-29 22:43] VITALS: BP 175/74
[2018-05-29] MEDS ORDERED: ACETAMINOPHEN 325 MG TABLET PO ONE (23:26)
[2018-05-29] MEDS ORDERED: IBUPROFEN 600 MG TABLET PO ONE (23:26)
--- NOTE | 2018-05-30 00:13 | RADIOLOGY REPORT (SQ) ---
EXAM DESCRIPTION: XR FOOT 3 OR MORE VIEWS COMPLETED DATE/TME: 05/29/2018 23:25 CLINICAL HISTORY: 62 years, Female, trauma COMPARISON: None. NUMBER OF VIEWS: TECHNIQUE: LIMITATIONS: None. FINDINGS: There is dorsal soft tissue swelling. No fracture or dislocation. There are degenerative changes involving the first metatarsophalangeal joint. There is a plantar calcaneal spur. IMPRESSION: No fracture or dislocation. Other findings as described. copyright 2010 [employer]- All Rights Reserved
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
== END 2018-05-30 00:35 | disposition home or self-care (01) ==
LOC: ER 22:36
DX: S99.922A Unspecified injury of left foot, initial encounter (principal); X58.XXXA Exposure to other specified factors, initial encounter; I10 Essential (primary) hypertension; Z90.49 Acquired absence of other specified parts of digestive tract; Z90.710 Acquired absence of both cervix and uterus; Z85.43 Personal history of malignant neoplasm of ovary; Z86.74 Personal history of sudden cardiac arrest
CPT/HCPCS: 99283; 73630; J3490 ×2

== ENCOUNTER 2019-01-19 16:05 | Emergency (ER) | payer MEDICAID ==
[2019-01-19 16:43] LABS: ABSOLUTE BASOPHILS # (AUTO) 0.1 10^3/uL (0.0-0.2); ABSOLUTE EOSINOPHILS # (AUTO) 0.1 10^3/uL (0.0-0.6); ABSOLUTE MONOCYTES (AUTO) 0.5 10^3/uL (0.1-1.4); ABSOLUTE NEUT (AUTO) 5.6 10^3/uL (1.7-8.2); EOSINOPHILS % (AUTO) 1.2 % (0-6); HEMATOCRIT 39.5 % (36.0-47.0); HEMOGLOBIN 13.2 g/dL (12.0-15.5); LYMPHOCYTES % (AUTO) 23.8 % (13-45); MEAN CORPUSCULAR HEMOGLOBIN 28.3 pg (27.0-33.4); MEAN CORPUSCULAR HGB CONC 33.4 g/dL (32.0-36.0); MEAN CORPUSCULAR VOLUME 85 fl (80-97); MONOCYTES % (AUTO) 6.6 % (3-13); PLATELET COUNT 413 10^3/uL (150-450); RED BLOOD COUNT 4.66 10^6/uL (3.72-5.28); SEGMENTED NEUTROPHILS % (AUTO) 67.4 % (42-78); TOTAL CELLS COUNTED % (AUTO) 100 %; WHITE BLOOD COUNT 8.3 10^3/uL (4.0-10.5)
--- NOTE | 2019-01-19 16:53 | RADIOLOGY REPORT (SQ) ---
EXAM DESCRIPTION: CHEST SINGLE VIEW COMPLETED DATE/TIME: 01/19/2019 4:42 pm REASON FOR STUDY: chest pain COMPARISON: 09/28/2017 NUMBER OF VIEWS: One view. TECHNIQUE: Single frontal radiographic image of the chest acquired. LIMITATIONS: None. FINDINGS: LUNGS AND PLEURA: Stable appearance. MEDIASTINUM AND HILAR STRUCTURES: Stable heart size and mediastinal structures. HEART AND VASCULAR STRUCTURES: Stable appearance. SUPPORT DEVICES: Appropriate location without change. BONES: No acute findings. OTHER: No other significant finding. IMPRESSION: STABLE APPEARANCE OF THE CHEST. SUPPORT DEVICES UNCHANGED. TECHNICAL DOCUMENTATION: JOB ID: [id number] [employer]- All Rights Reserved Reading location - IP/workstation name: [email or web address]
[2019-01-19 17:06] LABS: ALBUMIN 3.9 g/dL (3.5-5.0); ALKALINE PHOSPHATASE 157 U/L (38-126); ANION GAP 8 (5-19); ASPARTATE AMINO TRANSFERASE 16 U/L (14-36); BILIRUBIN,DIRECT 0.2 mg/dL (0.0-0.4); BILIRUBIN,TOTAL 0.3 mg/dL (0.2-1.3); BLOOD UREA NITROGEN 13 mg/dL (7-20); CALCIUM 9.2 mg/dL (8.4-10.2); CARBON DIOXIDE 30 mmol/L (22-30); CHLORIDE 104 mmol/L (98-107); CREATINE KINASE 68 U/L (30-135); GLUCOSE 101 mg/dL (75-110); POTASSIUM 3.6 mmol/L (3.6-5.0); TOTAL PROTEIN 7.5 g/dL (6.3-8.2)
[2019-01-19 17:16] LABS: CREATINE KINASE MB 1.37 ng/mL (<4.55)
[2019-01-19 17:17] LABS: TROPONIN I < 0.012 ng/mL
[2019-01-19] MEDS ORDERED: IPRATROPIUM/ALBUTEROL 0.5-2.5 MG/3 ML AMPUL NEB ONE (17:21)
--- NOTE | 2019-01-19 17:46 | EKG REPORT ---
SEVERITY:- ABNORMAL ECG - SINUS RHYTHM GARTH, CONSIDER BIATRIAL ABNORMALITIES ABNORMAL T, CONSIDER ISCHEMIA, LATERAL LEADS BORDERLINE PROLONGED QT INTERVAL : Confirmed by: Cesar Urrutia MD 19-Jan-2019 17:45:54
--- NOTE | 2019-01-19 19:29 | RADIOLOGY REPORT (SQ) ---
EXAM DESCRIPTION: CTA CHEST COMPLETED DATE/TIME: 01/19/2019 7:18 pm REASON FOR STUDY: evaluate for PE COMPARISON: None. TECHNIQUE: CT scan of the chest performed using helical scanning technique with dynamic intravenous contrast injection. Images reviewed with lung, soft tissue and bone windows. Reconstructed coronal and sagittal MPR images reviewed. Additional 3 dimensional post-processing performed to develop Maximal Intensity Projection images ([place] P). All images stored on PACS. All CT scanners at this facility use dose modulation, iterative reconstruction, and/or weight based d osing when appropriate to reduce radiation dose to as low as reasonably achievable (ALARA). [facility]: Dose Right [facility]: CareDose [facility]: Dose Right [facility]: Teradose 4D [facility]: SpinSnap CONTRAST TYPE AND DOSE: contrast/concentration: Isovue 350.00 mg/ml; Total Contrast Delivered: 65.0 ml; Total Saline Delivered: 80.0 ml Contrast bolus adequate for pulmonary arteries and aorta. RENAL FUNCTION: BUN 13 creatinine 0.82 RADIATION DOSE: CT Rad equipment meets quality standard of care and radiation dose reduction techniq ues were employed. CTDIvol: 19.8 - 21.5 mGy. DLP: 798 mGy-cm. . LIMITATIONS: None. FINDINGS: LUNGS AND PLEURA: No masses, infiltrates, or pneumothorax. No pleural effusions or pleura l calcifications. AORTA AND GREAT VESSELS: No aneurysm. Contrast bolus not optimized for the aorta. HEART: No pericardial effusion. No significant coronary artery calcifications. PULMONARY ARTERIES: No emboli visualized in the main pulmonary arteries or the segmental branches. HILAR AND MEDIASTINAL STRUCTURES: No identified masses or abnormal nodes. HARDWARE: None in the chest. UPPER ABDOMEN: No significant findings. Limited exam. THYROID AND OTHER SOFT TISSUES: There are a couple of calcified nodules in the left lobe of the thyro id gland. BONES: No acute or significant finding. 3D MIPS: Confirm above findings. OTHER: No other significant finding. IMPRESSION: There is no pulmonary embolus. There is no aortic aneurysm or dissection. There are 2 calcified nodules in the left lobe of the thyroid gland. COMMENT: Quality ID # [id number]: Final reports with documentation of one or more dose reduction techniques (e.g., Automated exposure control, adjustment of the mA and/or kV according to patient size, use of iterative reconstruction technique) TECHNICAL DOCUMENTATION: JOB ID: [id number] [employer]- All Rights Reserved Reading location - IP/workstation name: [email or web address]
[2019-01-19] MEDS ORDERED: METOPROLOL SUCCINATE 50 MG TAB.SR.24H PO ONE (21:06)
[2019-01-19] MEDS ORDERED: LISINOPRIL 10 MG TABLET PO ONE (21:30)
[2019-01-19 22:04] VITALS: BP 159/83
--- NOTE | 2019-01-20 00:24 | ER Document Report ---
Entered by OSVALDO MEDINA SCRIBE 01/19/19 [id number] Acting as scribe for:DILAN BHATT DO ED Cardiac - General Chief Complaint: Chest Pain Stated Complaint: CHEST PAIN Time Seen by Provider: 01/19/19 16:31 Primary Care Provider: ALYSE ORTEGA MD [Primary Care Provider] - Follow up tomorrow Mode of Arrival: Ambulatory Information source: Patient Notes: Patient is a 63-year-old female who presents to the emergency department today with with complaints of intermittent chest pain for the last week. Patient states it feels as if someone is sitting on her chest, like a pressure sensation. Patient states the pain increases with coughing and breathing. Patient also mentions that she developed a cough today. Patient states someone who lives in her house has also been coughing recently. Patient denies having any coronary artery stents, history of MS, pulmonary history, or abdominal pain. Patient did not get a flu shot or pneumonia vaccine this year. Patient is a smoker but she states today it "hurt too much to smoke". TRAVEL OUTSIDE OF THE [place] IN LAST 30 DAYS: No - Related Data Allergies/Adverse Reactions: Nitrate Analogues Adverse Reaction (Verified 03/30/17 20:10) Hypertrophic Cardiomyopathy Past Medical History - General Information source: Patient, [facility] Records - Social History Smoking Status: Current Every Day Smoker Cigarette use (# per day): Yes Frequency of alcohol use: None Drug Abuse: None Family History: CAD - Uncle, grandfather with CAD by age 50. Mother of an [place] at age 59., Hypertension Patient has suicidal ideation: No Patient has homicidal ideation: No - Past Medical History Cardiac Medical History: Reports: Hx Hypertension Neurological Medical History: Reports: Hx Cerebrovascular Accident Malignancy Medical History: Reports: Hx Ovarian Cancer Psychiatric Medical History: Reports: Hx Bipolar Disorder Past Surgical History: Reports: Hx Cholecystectomy, Hx Hysterectomy, Hx Neurologic Surgery, Hx Tonsillectomy, Hx Tubal Ligation - Immunizations Hx Diphtheria, Pertussis, Tetanus Vaccination: Yes Review of Systems - Review of Systems Constitutional: No symptoms reported EENT: No symptoms reported Cardiovascular: See HPI, Chest pain Respiratory: See HPI, Cough, Hurts to breathe Gastrointestinal: No symptoms reported Genitourinary: No symptoms reported Female Genitourinary: No symptoms reported Musculoskeletal: No symptoms reported Skin: No symptoms reported Hematologic/Lymphatic: No symptoms reported Neurological/Psychological: No symptoms reported -: Yes All other systems reviewed and negative Physical Exam - Vital signs Vitals: Temp Pulse BP Pulse Ox 98.8 F 84 198/84 H 99 01/19/19 16:12 01/19/19 16:12 01/19/19 16:12 01/19/19 16:12 Interpretation: Hypertensive - General General appearance: Appears well, Alert - HEENT Head: Normocephalic, Atraumatic Eyes: Normal Pupils: PERRL - Respiratory Respiratory status: No respiratory distress Chest status: Nontender Breath sounds: Normal Chest palpation: Normal - Cardiovascular Rhythm: Regular Heart sounds: Normal auscultation Murmur: No - Abdominal Inspection: Normal Distension: No distension Bowel sounds: Normal Tenderness: Nontender Organomegaly: No organomegaly - Back Back: Normal, Nontender - Extremities General upper extremity: Normal inspection, Nontender, Normal color, Normal ROM, Normal temperature General lower extremity: Normal inspection, Nontender, Normal color, Normal ROM, Normal temperature, Normal weight bearing. No: Sukh's sign - Neurological Neuro grossly intact: Yes Cognition: Normal Orientation: AAOx4 August Coma Scale Eye Opening: Spontaneous August Coma Scale Verbal: Oriented August Coma Scale Motor: Obeys Commands [place] Coma Scale Total: 15 Speech: Normal Motor strength normal: LUE, RUE, LLE, RLE Sensory: Normal - Psychological Associated symptoms: Normal affect, Normal mood - Skin Skin Temperature: Warm Skin Moisture: Dry Skin Color: Normal Course - Re-evaluation Re-evalutation: 01/19/19 18:40 Patient reassessed, states she has had no change with any of her symptoms. 01/19/19 21:40 Patient is a 63-year-old female with no history of heart disease who comes in complaining of chest pain. Patient is a lifetime smoker with high blood pressure. No acute findings on EKG. Troponin negative x2. Patient has had DuoNeb due to chest tightness with no relief. Patient with CTA with no acute findings. She has been given her antihypertensives that she did not take earlier today. Feels well and is comfortable being discharged home to follow-up with her doctor. Stable for discharge. Return if any worsening or concerning symptoms. Understands agrees with plan. - Vital Signs Vital signs: Temp Pulse Resp BP Pulse Ox 98.1 F 80 17 159/83 H 97 01/19/19 22:03 01/19/19 22:03 01/19/19 22:03 01/19/19 22:03 01/19/19 22:03 - Laboratory Result Diagrams: 01/19/19 16:26 01/19/19 16:26 Laboratory results interpreted by me: 01/19/19 01/19/19 16:26 16:26 RDW 15.0 H Alkaline Phosphatase 157 H - Diagnostic Test Radiology reviewed: Reports reviewed - EKG Interpretation by Me EKG shows normal: Sinus rhythm Rhythm: NSR When compared to previous EKG there are: No significant change Discharge - Discharge Clinical Impression: Atypical chest pain Condition: Stable Disposition: HOME, SELF-CARE Instructions: Chest Pain of Unclear Cause ([facility]) Additional Instructions: Please follow-up with your doctor in the morning regarding her chest pain. Please schedule an outpatient stress test. Referrals: ALYSE ORTEGA MD [Primary Care Provider] - Follow up tomorrow I personally performed the services described in the documentation, reviewed and edited the documentation which was dictated to the scribe in my presence, and it accurately records my words and actions.
== END 2019-01-19 22:04 | disposition home or self-care (01) ==
LOC: ER 16:05
DX: R07.89 Other chest pain (principal); R05 Cough; F17.210 Nicotine dependence, cigarettes, uncomplicated; I10 Essential (primary) hypertension; Z90.49 Acquired absence of other specified parts of digestive tract; Z90.710 Acquired absence of both cervix and uterus
CPT/HCPCS: 93005; 36415; 82553; 82550; 85025; 80053; 84484; 71045; 71275; 93010; J3490 ×2; J7620; 94640; 99285

== ENCOUNTER → 2019-02-03 | Outpatient (CLI) | payer MEDICAID ==
--- NOTE | 2019-02-03 10:07 | WOMENS IMAGING REPORT ---
EXAM DESCRIPTION: BILAT SCREENING MAMMO W/CAD COMPLETED DATE/TIME: 02/03/2019 9:27 am REASON FOR STUDY: ROUTINE SCREENING MAMMOGRAM Z12.31 Z12.31 ENCNTR SCREEN MAMMOGRAM FOR MALIGNANT N EOPLASM OF OJ COMPARISON: 2016 EXAM PARAMETERS: Standard craniocaudal and mediolateral oblique views of each breast recorded using digital acquisition. Read with the assistance of CAD. .[facility] - [employer] Version 9.2 LIMITATIONS: None. FINDINGS: No suspicious masses, suspicious calcifications or architectural distortion. No areas of c oncern. IMPRESSION: Negative MAMMOGRAM. BIRADS 1 BREAST DENSITY: b. There are scattered areas of fibroglandular density. BIRAD: ASSESSMENT: 1 NEGATIVE RECOMMENDATION: ROUTINE SCREENING COMMENT: The patient has been notified of the results by letter per MQSA requirements. Additional no tification policies are in place for contacting patient with suspicious or incomplete findings. Quality ID #[id number]: The [employer] recommends an annual screening mammogram for women aged 40 years or over. This facility utilizes a reminder system to ensure that all patients receive reminder letters, and/or direct phone calls for appointments. This includes reminders for routine scr eening mammograms, diagnostic mammograms, or other Breast Imaging Interventions when appropriate. Th is patient will be placed in the appropriate reminder system. TECHNICAL DOCUMENTATION: FINDING NUMBER: (1) ASSESSMENT: (1) JOB ID: [id number] [employer]- All Rights Reserved Reading location - IP/workstation name: [email or web address]
== END ==
LOC: WI 08:54
PROVIDERS: ATTEND Family Medicine
DX: Z12.31 Encounter for screening mammogram for malignant neoplasm of breast (principal)
CPT/HCPCS: 77067